=== PATIENT | female | born 1985 | race Caucasian/White ===

== ENCOUNTER → 2017-02-06 | Outpatient (CLI) | payer BC ==
[~2017-02-06] MED LIST: LAMO200T PO; LXP/10 PO
[2017-02-06 14:11] LABS: URINE APPEARANCE CLEAR (CLEAR); URINE BILIRUBIN NEG (NEG); URINE COLOR YELLOW; URINE EPITHELIAL CELL AUTO >30 /lpf (0-5); URINE NITRITE NEG (NEG); URINE PH 6.5 (4.5-7.5); URINE SPECIFIC GRAVITY 1.018 (1.000-1.030); UROBILINOGEN NEG (NEG); ZZUR CULT IF INDIC CLEAN CATCH YES
[2017-02-06 14:15] LABS: MANUAL MICROSCOPIC REQUIRED? NO; REVIEW REQ? YES
[2017-02-06 15:04] LABS: CALCIUM 9.2 mg/dl (8.5-10.1)
[2017-02-06 15:12] LABS: ALB/GLOB RATIO 1.5 (0.9-2); ALT/SGPT 48 U/L (12-78); BLOOD UREA NITROGEN 12 mg/dl (7-18); BUN/CREATININE RATIO 15.1 (10-20); CARBON DIOXIDE 27 mmol/L (21-32); CHLORIDE 106 mmol/L (98-107); CHOLESTEROL 185 mg/dl (0-200); CREATININE 0.82 mg/dl (0.60-1.20); GLUCOSE 81 mg/dl (70-99); POTASSIUM 4.1 mmol/L (3.5-5.1); SODIUM 142 mmol/L (136-145)
[2017-02-06 15:21] LABS: ALKALINE PHOSPHATASE 38 U/L (45-117); AST/SGOT 25 U/L (15-37); CHOLESTEROL/HDL RATIO 2.6; HDL CHOLESTEROL 71 mg/dl; LDL CHOLESTEROL CALCULATED 104 mg/dl; TRIGLYCERIDES 51 mg/dl (0-150); VERY LOW DENSITY LIPOPROT CALC 10 mg/dl
== END | disposition home or self-care (01) ==
LOC: C.LABBC 11:01
DX: Z51.81 Encounter for therapeutic drug level monitoring (principal); Z79.899 Other long term (current) drug therapy

== ENCOUNTER → 2017-06-24 | Outpatient (CLI) | payer BC | END | disposition home or self-care (01) | LOC: C.LABBC 10:54 | PROVIDERS: ATTEND Nurse Practitioner Adult Health | DX: R39.9 Unspecified symptoms and signs involving the genitourinary system (principal) ==

== ENCOUNTER → 2017-08-08 | Day surgery (SDC) | payer BC ==
[2017-07-26 14:47] VITALS: BMI 16.0
--- NOTE | 2017-07-26 15:15 | PAT Medication Instructions ---
Service Date Jul 26, 2017. Current Home Medication List Ibuprofen (Advil), 200 MG PO Q4 PRN for Pain Lamotrigine (Lamictal), 200 MG PO QAM Lorazepam (Ativan), 0.25-0.5 MG PO BID PRN for Anxiety and/or Sedation Quetiapine Fumarate (Seroquel), 25 MG PO HS Medication Instructions For Your Scheduled Surgery - Check with surgeon for instructions: Ibuprofen (Advil), 200 MG PO Q4 PRN for Pain - Take the following medications the morning of surgery with a sip of water: Lamotrigine (Lamictal), 200 MG PO QAM Lorazepam (Ativan), 0.25-0.5 MG PO BID PRN for Anxiety and/or Sedation (if needed) - Take the following medications as scheduled the night before surgery: Quetiapine Fumarate (Seroquel), 25 MG PO HS Lorazepam (Ativan), 0.25-0.5 MG PO BID PRN for Anxiety and/or Sedation (if needed) If you have any questions please call us at [phone] or [phone] or [phone]
[2017-07-26 15:39] LABS: BASO % 0.5 %; BASO ABS # 0.02 K/uL (0-0.2); HEMATOCRIT 41.7 % (37-47); HEMOGLOBIN 13.9 g/dL (12.0-16.0); LYMPH % 35.3 %; LYMPH ABS # 1.42 K/uL (1.2-3.4); MEAN CELL VOLUME 98.6 fL (80-100); MEAN CORPUSCULAR HEMOGLOBIN 32.9 pg (25-34); MEAN CORPUSCULAR HGB CONC 33.3 g/dl (32-36); MEAN PLATELET VOLUME 10.1 fL (7.4-10.4); MONO % 6.5 %; MONO ABS # 0.26 K/uL (0.11-0.59); NEUT % 57.7 %; NEUT ABS # 2.32 K/uL (1.4-6.5); PLATELET COUNT 225 K/uL (130-400); RED CELL DISTRIBUTION WIDTH CV 12.2 % (11.5-14.5); RED CELL DISTRIBUTION WIDTH SD 43.7 fL (36.4-46.3); WHITE BLOOD COUNT 4.02 K/uL (4.8-10.8)
--- NOTE | 2017-07-26 15:53 | DIAGNOSTIC IMAGING REPORT ---
CHEST 2 VIEWS ROUTINE HISTORY: 31 years-old Female PAT preoperative exam. No acute chest complaints COMPARISON: CT abdomen and pelvis 02/07/2014 TECHNIQUE: PA and lateral views of the chest FINDINGS: Cardiomediastinal and hilar silhouettes are within normal limits. No pneumothorax, pleural effusion, focal airspace consolidation or overt pulmonary edema. The bones of the chest appear grossly intact. IMPRESSION: No acute process. The above report was generated using voice recognition software. It may contain grammatical, syntax or spelling errors. Electronically signed by: Daniel Fontana M.D. 07/26/2017 3:51 PM Dictated Date/Time: 07/26/2017 3:50 PM
[2017-07-26 16:35] LABS: CALCIUM 9.1 mg/dl (8.5-10.1); CREATININE 0.79 mg/dl (0.60-1.20); POTASSIUM 4.5 mmol/L (3.5-5.1)
[~2017-08-08] VITALS: Ht 160 cm; Wt 43.0 kg
[~2017-08-08] MED LIST changes: +ACETAMINOPHEN 325 MG TAB PO PRN; +ATROPINE SULFATE 0.1 MG/ML 5ML SYR IV PRN; +CIPROFLOXACIN / D5W 400 MG IV SCH; +DEXAMETHASONE SOD INJ 4 MG/ML VIAL ONE; +EpHEDrine SULFATE INJ 50 MG/ML AMP IV PRN; +FENTANYL CITRATE INJ 50 MCG/1 ML 2 ML VIAL IV PRN; +FENTANYL CITRATE INJ 50 MCG/1 ML 2 ML VIAL ONE; +HYDROmorphone INJ 1 MG/ML SYR IV PRN; +IBUP-1050 PO; +KETOROLAC TROMETHAMINE 30 MG/ML VIAL ONE; +LABETALOL HCL IV 5 MG/ML 20ML IV PRN; +LACTATED RINGER'S 1000ML 1,000 ML IV SCH; +LIDOCAINE HCL 2% 2 ML VIAL (20MG/ML) ONE; +LORA-741 PO; -LXP/10 PO; +MEPERIDINE HCL 25 MG/ML CARP IV PRN; +MIDAZOLAM HCL 1 MG/ML 2ML VIAL ONE; +ONDANSETRON INJ 2 MG/ML 2 ML VIAL IV PRN; +ONDANSETRON INJ 2 MG/ML 2 ML VIAL ONE; +PHEN-775 PO; +PHENAZOPYRIDINE HCL 200 MG TAB PO STA; +PROPOFOL IV EMULSION 10 MG/ML 20 ML VIAL IV ONE; +QUET1TAB30 PO; +SODIUM CHLORIDE 0.9% 1000ML 1,000 ML IV SCH
[2017-08-08 07:18] VITALS: BP 113/59; PULSE 77; TEMP 36.4; O2SAT 100; Ht 160 cm; Wt 43.0 kg
--- NOTE | 2017-08-08 08:26 | History & Physical Bridge Note ---
H&P Re-Evaluation Bridge Note: I have examined the patient, reviewed the History & Physical and in the interval since the performance of the History & Physical I have noted the following changes of clinical significance: No changes noted
--- NOTE | 2017-08-08 09:13 | Discharge Instructions ---
Discharge Instructions Date of Service Aug 08, 2017. Admission Reason for Admission: Urinary Urgency/Frequency Discharge Discharge Diagnosis / Problem: urgency, frequency Discharge Goals Goal(s): Decrease discomfort, Improve function, Increase independence, Improve disease control Activity Recommendations Activity Limitations: resume your previous activity Lifting Limitations: none Exercise/Sports Limitations: none May Resume Sexual Activity: when tolerated Shower/Bathe: no limitations Driving or Machine Use: resume 1 day after discharge . Instructions / Follow-Up Instructions / Follow-Up Please keep your previously scheduled follow up appointment with Dr. Rubio. Current Hospital Diet Patient's current hospital diet: Discharge Diet Recommended Diet: Regular Diet Procedures Procedures Performed: Cystoscopy, Urethral Dilation, Hydrodistention Pending Studies Studies pending at discharge: no Medical Emergencies . Who to Call and When: Medical Emergencies: If at any time you feel your situation is an emergency, please call 911 immediately. . Non-Emergent Contact Non-Emergency issues call your: Urologist Call Non-Emergent contact if: you have a fever, temperature is above 101.5, your pain is not controlled, your pain is worsening . . "Provider Documentation" section prepared by Diego Martin. . VTE Core Measure Inpt VTE Proph given/why not?: Treatment not indicated
--- NOTE | 2017-08-08 09:17 | [facility] Operative Report ---
Operative Report Operative Date Aug 08, 2017. Pre-Operative Diagnosis Bladder dysfunction, hematuria Post-Operative Diagnosis same as pre-operative Procedure(s) Performed Cystoscopy, Urethral Dilation, Hydrodistention Surgeon Dr. Ankush Rubio Kiln Operator Helper Surgeon(s) none Estimated Blood Loss none Findings Moderately tight urethra without definitive stricture; healthy-appearing bladder - adequate capacity without mucosal abnormality Specimens none per surgeon Drains none Anesthesia Gen. Complication(s) None Disposition Recovery Room / PACU (stable) Indications Severe nocturia and urinary frequency; unresponsive to medications; hematuria Description of Procedure The patient was identified in the preoperative holding area, appropriate consents were reviewed and completed and she was transported to the operating suite. Upon arrival she received ciprofloxacin and general anesthesia. She was placed in dorsal lithotomy position and sterilely prepped and draped in standard fashion. I begin the case by gently inserting a 17 Qatari cystoscope with 30 lens. The urethra accommodated a 17 Q[place]ari scope was moderately tight. Full inspection of the bladder was conducted utilizing a 30 and 70 lens. There were no ulcerations or tumors. Ureteral orifices were in orthotopic position. Capacity appeared to be adequate. Full inspection of the urethra was conducted without evidence of abnormality or diverticuli. I then proceeded to perform end urethral dilation to 26 Qatari. Subsequent passage of a 22 Qatari scope was much easier than the 17 Qatari scope and then. I then distended the bladder maximally and left distended for 5 minutes. After draining the bladder and inspecting again, there still were no abnormalities or significant glomerulations. The case was subsequently concluded and she was extubated and taken to the PACU in stable condition. I attest to the content of the Intraoperative Record and any orders documented therein. Any exceptions are noted below.
--- NOTE | 2017-08-08 09:55 | Anesthesiology Progress Note ---
Anesthesia Post Op Note Date & Time Aug 08, 2017 at 09:55 Vital Signs Pain Intensity: 0 Vital Signs Past 12 Hours Date Time Temp Pulse Resp B/P (MAP) Pulse Ox O2 Delivery O2 Flow Rate FiO2 08/08/17 09:45 50 16 109/72 100 Room Air 08/08/17 09:35 67 16 104/76 100 Oxymask 5 08/08/17 09:25 70 16 118/83 100 Oxymask 10 08/08/17 09:19 36.2 68 14 118/81 100 Oxymask 10 08/08/17 07:18 36.4 77 16 113/59 (77) 100 Room Air Notes Mental Status: alert / awake / arousable, participated in evaluation Pt Amnestic to Procedure: Yes Nausea / Vomiting: adequately controlled Pain: adequately controlled Airway Patency, RR, SpO2: stable & adequate BP & HR: stable & adequate Hydration State: stable & adequate Anesthetic Complications: no major complications apparent
[2017-08-08 10:20] VITALS: BP 107/70; PULSE 48; TEMP 36.3; O2SAT 100
[2017-08-08 10:50] VITALS: BP 103/67; PULSE 62; TEMP 36.5; O2SAT 100
== END | disposition home or self-care (01) ==
LOC: C.ACU 06:53
PROVIDERS: ATTEND Urology
DX: N31.9 Neuromuscular dysfunction of bladder, unspecified (principal); R39.15 Urgency of urination; R35.0 Frequency of micturition; R31.9 Hematuria, unspecified; F32.9 Major depressive disorder, single episode, unspecified; R33.9 Retention of urine, unspecified; F42.9 Obsessive-compulsive disorder, unspecified; Z90.49 Acquired absence of other specified parts of digestive tract; Z82.49 Family history of ischemic heart disease and other diseases of the circulatory system; Z80.3 Family history of malignant neoplasm of breast; Z83.3 Family history of diabetes mellitus; Z80.1 Family history of malignant neoplasm of trachea, bronchus and lung

== ENCOUNTER 2022-03-25 16:41 | Inpatient (IN) ==
--- NOTE | 2022-03-25 17:19 | Emergency Department Note ---
Impression & Plan Depression with suicidal ideation ED Provider Note Name: YEISON MATTHEW Age: 36 Sex: F Arrives Via: Walk-In Informant: Patient, ED Provider: Sandeep Arciniega MD Chief Complaint: Mental health evaluation Impression: As per impressions above Medical Decision Makin-year-old female with a history of anxiety depression and previous hospitalization for suicide attempt arrives for evaluation of worsening depression, OCD, anxiety and increasing thoughts of suicide. She now has thought of jumping off a building and already chosen which building to do so from. She is medically cleared. I feel she does require inpatient stay and patient is agreeable to this. [facility] consulted and they will hospitalize on the floor. Prior Medical Record and Triage/Nursing Notes reviewed by Me Additional history obtained from chart Differentials:Mood disorder, infection, hypoglycemia, electrolyte abnormalities, cardiac sources, intracerebral event, toxicologic, trauma, neurologic, as well as other pathologies. Vital Signs: reviewed and remarkable for no significant abnormalities Labs:Reviewed and remarkable for no significant abnormalities Consults:[facility] accepts to their facility Plan: Disposition:Hospitalization. Condition: Good History of Present Illness:36-year-old female arrives for evaluation of suicidal ideation. Patient with a long history of depression anxiety and OCD and a previous hospitalization 6 to 8 years ago for suicide attempt. Patient notes the last 6 months have been very difficult for her. She states worsening anxiety and thoughts of the house being unclean. She feels she can see bugs all over her house. She and her have been living in this house for the last 12 years and he and she denies any recent changes. She does note that she has been so stressed she is now thinking of killing herself. She has thoughts of going to a local garage and jumping off the top floor. She denies any actual attempt at hurting herself recently. Denies any injuries from others. Has not been taking any other illegal drugs or smoking or drinking. Denies any medical issues other than she had a fever 2 weeks ago. At that time she was worked up by her PCP and told a viral illness but was COVID-negative as well. Nothing seems to make her symptoms better or worse other than she does feel better now that she is out of the house. Denies any current chest pain, shortness of breath, nausea, vomiting, abdominal pain, back pain, urinary symptoms, leg swelling, rashes or any other signs or symptoms. Patient does have a history of anorexia. She states her calorie restriction has been stable she has not had any weight loss and feels that is relatively under good control at the moment. ROS: See above HPI for pertinent positives & negatives. A total of 10 systems reviewed and were otherwise negative. Past Medical History:Anxiety/depression, endometriosis, anorexia Past Surgical History:Bilateral foot surgery, tonsils and adenoids, endometrial ablation, appendectomy Family History:Notes a significant family history of anxiety though no previous suicide attempts and family Social History:, has lived in [place] for the last 15 years, no drugs, no alcohol use, no tobacco use Home Medications:Paxil, Ativan, loxapine Allergies:Shellfish, eggs, anthramycin, milk, clavulanic acid, penicillin, sulfisoxazole, oxycodone Vitals:Blood Pressure: 126/86, Pulse 88, RR 8, T 36.7C, O2 99% on RA Physical Exam: GENERAL: Patient is sad appearing and in minimal distress. EYES: No scleral icterus, unremarkable pupils. RESPIRATORY: No dyspnea. Clear to auscultation and equal bilaterally. No wheeze, no rhonchi. CARDIOVASCULAR: Regular rate and rhythm.No murmurs, rubs, gallops appreciated. GASTROINTESTINAL: Abdomen soft, non-tender, no peritonitis.Bowel sounds positive.No masses appreciated. BACK: No midline tenderness, no CVA tenderness EXTREMITIES: Normal motion all extremities, no cyanosis, no edema. NEUROLOGIC: Alert and oriented, no acute motor or sensory deficits, no focal weakness, cranial nerves grossly intact. SKIN: No rash, no jaundice, no diaphoresis. PSYCH: Sad, depressed, admits suicidal/homicidal ideation GCS: 15 ED Course: Times/Reassessments: Patient stable throughout and excepted to [facility] for further management. Sandeep Arciniega MD Past Med/Surg History Social History Smoking Status: Never smoker Preferred Language: Syriac Communication Ability: Effective Auto Tester Required: No Beliefs That Will Affect Care: None Feels Safe at Home: Yes Assistive Devices Comment: Mouth guard Allergies Allergies Allergy/AdvReac Type Severity Reaction Status Date / Time shellfish derived Allergy Severe ANAPHYLAXIS Verified 08/08/17 07:15 Egg Derived Allergy Intermediate RASH Verified 08/08/17 07:15 erythromycin base Allergy Intermediate RASH, Verified 08/08/17 07:15 HIVES AND SWELLING milk Allergy Mild RASH Verified 08/08/17 07:15 clavulanic acid Allergy Unknown RASH, Verified 08/08/17 07:15 HIVES AND SWELLING Penicillins Allergy Unknown HIVES, Verified 08/08/17 07:15 RASH AND SWELLING sulfisoxazole Allergy Unknown RASH, Verified 07/26/17 14:38 HIVES AND SWELLING oxycodone AdvReac Mild MIGRAINE Verified 07/26/17 14:45 Home Meds Home Medications Medication Instructions Recorded Confirmed LORAZEPAM (ATIVAN) 0.25 - 0.5 mg PO BID PRN Anxiety 07/26/17 03/25/22 and/or Sedation #0 tabs loxapine succinate 5 mg capsule 5 mg PO HS 03/25/22 03/25/22 paroxetine HCl 10 mg tablet 10 mg PO DAILY 03/25/22 03/25/22 Results & Data (ED) Vital Signs Vital Signs - 24 hr 03/25/22 16:53 Temperature 36.7 C Temperature Source Temporal Artery Scan Pulse Rate 88 Respiratory Rate 18 Blood Pressure 126/86 Blood Pressure Mean 99 Oxygen Delivery Method Room Air Sepsis Recent Fever Within 48 Hours No Sepsis New/Unexplained Change in Mental Status No Sepsis Action Taken by Nursing No Action Required Laboratory Data Result diagrams: 03/25/22 17:25 03/25/22 17:25 Lab Results 03/25/22 03/25/22 03/25/22 Range/Units 17:03 17:03 17:03 WBC (4.8-10.8) K/ul RBC (3.93-5.22) M/uL Hgb (12.0-16.0) g/dl Hct (34.1-44.9) % MCV (80.0-100.0) fL MCH (25.0-34.0) pg MCHC (32.0-36.0) g/dL RDW Std Deviation (36.4-46.3) fL RDW Coeff of Samy (11.5-14.5) % Plt Count (130-400) K/uL MPV (9.4-12.3) fL Immature Gran % (Auto) % Neut % (Auto) % Lymph % (Auto) % [place] % (Auto) % Eos % (Auto) % Baso % (Auto) % Neut # (Auto) (1.4-6.5) K/uL Lymph # (Auto) (1.2-3.4) K/uL [place] # (Auto) (0.24-0.82) K/uL Eos # (Auto) (0-0.50) K/uL Baso # (Auto) (0-0.2) K/uL Immature Gran # (Auto) (0.00-0.02) K/uL Sodium (136-145) mmol/L Potassium (3.5-5.1) mmol/L Chloride (98-107) mmol/L Carbon Dioxide (21-32) mmol/L Anion Gap (3-11) BUN (6-23) mg/dl Creatinine (0.6-1.2) mg/dl Est Cr Clr Drug Dosing ml/min Est GFR ( Amer) ml/min Est GFR (Non-Af Amer) ml/min BUN/Creatinine Ratio (10-20) Glucose (70-99(Fasting)) mg/dl Calcium (8.5-10.1) mg/dl Total Bilirubin (0.2-1.0) mg/dl AST (13-39) U/L ALT (7-52) U/L Alkaline Phosphatase (34-104) U/L Total Protein (6.0-8.3) gm/dl Albumin (3.4-5.0) gm/dl Globulin (2.5-4.0) gm/dl Albumin/Globulin Ratio (0.9-2) TSH (0.300-4.500) uIu/ml Urine Color Yellow Urine Appearance Clear (Clear) Urine pH 7.0 (4.5-7.5) Ur Specific Olar 1.019 (1.000-1.030) Urine Protein Negative (Negative) Urine Glucose (UA) Negative (Negative) Urine Ketones Negative (Negative) Urine Blood Trace H (Negative) Urine Nitrite Negative (Negative) Urine Bilirubin Negative (Negative) Urine Urobilinogen Negative (Negative) Ur Leukocyte Esterase Negative (Negative) Urine WBC (Auto) 1-5 (0-5) /hpf Urine RBC (Auto) 5-10 H (0-4) /hpf U Hyaline Cast (Auto) 0 (0-5) /lpf U Epithel Cells (Auto) 10-20 H (0-5) /lpf Urine Bacteria (Auto) Negative (Negative) Urine Test Negative (Negative) Salicylates (3.0-30) mg/dl Urine Opiates Screen (Neg) Ur Methadone, Qual (Neg) Acetaminophen (10-30) ug/ml Urine Barbiturates (Neg) Ur Phencyclidine (PCP) (Neg) U Amphetamin/Meth Scrn (Neg) MDMA (Ecstasy) Screen (Neg) U Benzodiazepines Scrn (Neg) Ur Cocaine Metabolite (Neg) U Marijuana (THC) Screen (Neg) Ethyl Alcohol mg/dL (<10.0) mg/dl SARS-CoV-2, RNA, NAAT NEGATIVE (NEGATIVE) 03/25/22 03/25/22 03/25/22 Range/Units 17:03 17:25 17:25 WBC 7.64 (4.8-10.8) K/ul RBC 4.15 (3.93-5.22) M/uL Hgb 13.7 (12.0-16.0) g/dl Hct 41.1 (34.1-44.9) % MCV 99.0 (80.0-100.0) fL MCH 33.0 (25.0-34.0) pg MCHC 33.3 (32.0-36.0) g/dL RDW Std Deviation 44.2 (36.4-46.3) fL RDW Coeff of Samy 12.1 (11.5-14.5) % Plt Count 212 (130-400) K/uL MPV 10.1 (9.4-12.3) fL Immature Gran % (Auto) 0.1 % Neut % (Auto) 77.9 % Lymph % (Auto) 15.7 % [place] % (Auto) 5.9 % Eos % (Auto) 0.1 % Baso % (Auto) 0.3 % Neut # (Auto) 5.95 (1.4-6.5) K/uL Lymph # (Auto) 1.20 (1.2-3.4) K/uL [place] # (Auto) 0.45 (0.24-0.82) K/uL Eos # (Auto) 0.01 (0-0.50) K/uL Baso # (Auto) 0.02 (0-0.2) K/uL Immature Gran # (Auto) 0.01 (0.00-0.02) K/uL Sodium 139 (136-145) mmol/L Potassium 3.9 (3.5-5.1) mmol/L Chloride 103 (98-107) mmol/L Carbon Dioxide 30 (21-32) mmol/L Anion Gap 6 (3-11) BUN 15 (6-23) mg/dl Creatinine 0.69 (0.6-1.2) mg/dl Est Cr Clr Drug Dosing 76.4 ml/min Est GFR ( Amer) 130.7 ml/min Est GFR (Non-Af Amer) 112.8 ml/min BUN/Creatinine Ratio 21.7 H (10-20) Glucose 106 H (70-99(Fasting)) mg/dl Calcium 9.8 (8.5-10.1) mg/dl Total Bilirubin 0.4 (0.2-1.0) mg/dl AST 21 (13-39) U/L ALT 22 (7-52) U/L Alkaline Phosphatase 39 (34-104) U/L Total Protein 7.3 (6.0-8.3) gm/dl Albumin 4.9 (3.4-5.0) gm/dl Globulin 2.4 L (2.5-4.0) gm/dl Albumin/Globulin Ratio 2.0 (0.9-2) TSH (0.300-4.500) uIu/ml Urine Color Urine Appearance (Clear) Urine pH (4.5-7.5) Ur Specific O[place] (1.000-1.030) Urine Protein (Negative) Urine Glucose (UA) (Negative) Urine Ketones (Negative) Urine Blood (Negative) Urine Nitrite (Negative) Urine Bilirubin (Negative) Urine Urobilinogen (Negative) Ur Leukocyte Esterase (Negative) Urine WBC (Auto) (0-5) /hpf Urine RBC (Auto) (0-4) /hpf U Hyaline Cast (Auto) (0-5) /lpf U Epithel Cells (Auto) (0-5) /lpf Urine Bacteria (Auto) (Negative) Urine Test (Negative) Salicylates (3.0-30) mg/dl Urine Opiates Screen Neg (Neg) Ur Methadone, Qual Neg (Neg) Acetaminophen (10-30) ug/ml Urine Barbiturates Neg (Neg) Ur Phencyclidine (PCP) Neg (Neg) U Amphetamin/Meth Scrn Neg (Neg) MDMA (Ecstasy) Screen Neg (Neg) U Benzodiazepines Scrn Neg (Neg) Ur Cocaine Metabolite Neg (Neg) U Marijuana (THC) Screen Neg (Neg) Ethyl Alcohol mg/dL (<10.0) mg/dl SARS-CoV-2, RNA, NAAT (NEGATIVE) 03/25/22 03/25/22 03/25/22 Range/Units 17:25 17:25 17:25 WBC (4.8-10.8) K/ul RBC (3.93-5.22) M/uL Hgb (12.0-16.0) g/dl Hct (34.1-44.9) % MCV (80.0-100.0) fL MCH (25.0-34.0) pg MCHC (32.0-36.0) g/dL RDW Std Deviation (36.4-46.3) fL RDW Coeff of Samy (11.5-14.5) % Plt Count (130-400) K/uL MPV (9.4-12.3) fL Immature Gran % (Auto) % Neut % (Auto) % Lymph % (Auto) % [place] % (Auto) % Eos % (Auto) % Baso % (Auto) % Neut # (Auto) (1.4-6.5) K/uL Lymph # (Auto) (1.2-3.4) K/uL [place] # (Auto) (0.24-0.82) K/uL Eos # (Auto) (0-0.50) K/uL Baso # (Auto) (0-0.2) K/uL Immature Gran # (Auto) (0.00-0.02) K/uL Sodium (136-145) mmol/L Potassium (3.5-5.1) mmol/L Chloride (98-107) mmol/L Carbon Dioxide (21-32) mmol/L Anion Gap (3-11) BUN (6-23) mg/dl Creatinine (0.6-1.2) mg/dl Est Cr Clr Drug Dosing ml/min Est GFR ( Amer) ml/min Est GFR (Non-Af Amer) ml/min BUN/Creatinine Ratio (10-20) Glucose (70-99(Fasting)) mg/dl Calcium (8.5-10.1) mg/dl Total Bilirubin (0.2-1.0) mg/dl AST (13-39) U/L ALT (7-52) U/L Alkaline Phosphatase (34-104) U/L Total Protein (6.0-8.3) gm/dl Albumin (3.4-5.0) gm/dl Globulin (2.5-4.0) gm/dl Albumin/Globulin Ratio (0.9-2) TSH 0.931 (0.300-4.500) uIu/ml Urine Color Urine Appearance (Clear) Urine pH (4.5-7.5) Ur Specific [place] (1.000-1.030) Urine Protein (Negative) Urine Glucose (UA) (Negative) Urine Ketones (Negative) Urine Blood (Negative) Urine Nitrite (Negative) Urine Bilirubin (Negative) Urine Urobilinogen (Negative) Ur Leukocyte Esterase (Negative) Urine WBC (Auto) (0-5) /hpf Urine RBC (Auto) (0-4) /hpf U Hyaline Cast (Auto) (0-5) /lpf U Epithel Cells (Auto) (0-5) /lpf Urine Bacteria (Auto) (Negative) Urine Test (Negative) Salicylates < 3.0 L (3.0-30) mg/dl Urine Opiates Screen (Neg) Ur Methadone, Qual (Neg) Acetaminophen < 3 L (10-30) ug/ml Urine Barbiturates (Neg) Ur Phencyclidine (PCP) (Neg) U Amphetamin/Meth Scrn (Neg) MDMA (Ecstasy) Screen (Neg) U Benzodiazepines Scrn (Neg) Ur Cocaine Metabolite (Neg) U Marijuana (THC) Screen (Neg) Ethyl Alcohol mg/dL < 10.0 (<10.0) mg/dl SARS-CoV-2, RNA, NAAT (NEGATIVE) Administered Medications Loxapine Succinate (Loxapine Succinate) 1 each PO HS TERESSA Stop: 04/24/22 21:59 Last Admin: 03/25/22 22:22 Dose: 1 each Documented By: RAMAN Discontinued Medications Lorazepam (Lorazepam 1 Mg Tab) 0.5 mg SL NOW STA Stop: 03/25/22 17:52 Last Admin: 03/25/22 18:04 Dose: 0.5 mg Documented By: Discharge Plan Visit Data Chief Complaint: Mental Health Evaluation Stated Complaint: MENTAL HEALTH EVAL ED Provider: Sandeep Arciniega Discharge Problem: Depression with suicidal ideation Patient Disposition: Admitted As Inpatient Discharge Instructions Interventions: ED Discharge Assessment Last Done: 03/25/22 19:44
[2022-03-25 17:41] LABS: Basophils # (auto) 0.02 K/uL (0-0.2); Basophils % (auto) 0.3 %; Eosinophils # (auto) 0.01 K/uL (0-0.50); Eosinophils % (auto) 0.1 %; Hematocrit (blood only) 41.1 % (34.1-44.9); Hemoglobin 13.7 g/dl (12.0-16.0); Immature Granulocytes # (auto) 0.01 K/uL (0.00-0.02); Immature Granulocytes % (auto) 0.1 %; Lymphocytes % (auto) 15.7 %; Mean Corpuscular Hgb Conc 33.3 g/dL (32.0-36.0); Mean Platelet Volume 10.1 fL (9.4-12.3); Monocytes # (auto) 0.45 K/uL (0.24-0.82); Monocytes % (auto) 5.9 %; Neutrophils # (auto) 5.95 K/uL (1.4-6.5); Neutrophils % (auto) 77.9 %; Platelet Count 212 K/uL (130-400); RDW Coefficient of Variation 12.1 % (11.5-14.5); RDW Standard Deviation 44.2 fL (36.4-46.3); Red Blood Count 4.15 M/uL (3.93-5.22); White Blood Count 7.64 K/ul (4.8-10.8)
[2022-03-25 17:45] LABS: Pregnancy Test, Urine Negative (Negative)
[2022-03-25 17:47] LABS: Appearance Urine Clear (Clear); Bacteria Urine Automated Negative (Negative); Bilirubin Urine Negative (Negative); Blood Urine Trace (Negative); Cast Urine Automated 0 /lpf (0-5); Color Urine Yellow; Glucose Urine UA Negative (Negative); Ketones Urine Negative (Negative); Leukocyte Esterase Urine Negative (Negative); Nitrite Urine Negative (Negative); Protein Urine Negative (Negative); Specific Gravity Urine 1.019 (1.000-1.030); Urobilinogen Urine Negative (Negative)
[2022-03-25] MEDS ORDERED: LORazepam 1 MG TAB SL STA (17:51)
[2022-03-25 18:03] LABS: Acetaminophen < 3 ug/ml (10-30); Albumin Level 4.9 gm/dl (3.4-5.0); BUN Creatinine Ratio 21.7 (10-20); Bilirubin,Total 0.4 mg/dl (0.2-1.0); Calcium 9.8 mg/dl (8.5-10.1); Creatinine Clr Calc Pharmacy 76.4 ml/min; Est GFR (African American) 130.7 ml/min; Est GFR (Non-African American) 112.8 ml/min; Globulin 2.4 gm/dl (2.5-4.0); Potassium 3.9 mmol/L (3.5-5.1); Salicylate < 3.0 mg/dl (3.0-30); Total Protein 7.3 gm/dl (6.0-8.3)
[2022-03-25 18:10] LABS: Amphetamines+Metham, Urine Neg (Neg); Barbiturates, Urine Neg (Neg); Benzodiazepine, Urine Neg (Neg); Cocaine, Urine Neg (Neg); MDMA (Ecstacy), Urine Neg (Neg); Methadone, Urine Neg (Neg); Opiate, Urine Neg (Neg); Phencyclidine, Urine Neg (Neg)
[2022-03-25] MEDS ORDERED: BISMUTH SUBSALICYLATE LIQD 236 ML PO PRN (19:05)
[2022-03-25] MEDS ORDERED: SODIUM CHLORIDE 0.65% NA SOLN 45 ML (OCEAN) PRN (19:05)
[2022-03-25] MEDS ORDERED: hydrOXYzine HCl 25 MG TAB PO PRN (19:05)
[2022-03-25] MEDS ORDERED: ALUMINUM/MAGNESIUM SUSP 30 ML UDC PO PRN (19:05)
[2022-03-25] MEDS ORDERED: ACETAMINOPHEN 325 MG TAB PO PRN (19:05)
[2022-03-25] MEDS ORDERED: MAGNESIUM HYDROXIDE SUSP 30 ML UDC PO PRN (19:05)
[2022-03-25] MEDS ORDERED: LORazepam 0.5 MG TAB PO PRN (19:44)
[2022-03-25] MEDS: LOXAPINE SUCCINATE PO SCH (22:22)
[2022-03-26 08:40] LABS: Chol HDL Ratio 3.3 (0-5)
[2022-03-26] MEDS ORDERED: PARoxetine HCL 10 MG TAB PO SCH (09:00)
[2022-03-26] MEDS ORDERED: LORazepam 0.5 MG TAB PO PRN (11:00)
[2022-03-26] MEDS: POLYETHYLENE (MIRALAX) 17 GM PACK PO SCH (11:57)
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
[2022-03-26] MEDS: LOXAPINE SUCCINATE PO SCH (21:47)
[2022-03-26] MEDS: CLOMIPRAMINE 25 MG PO SCH (21:48)
[2022-03-27] MEDS: hydrOXYzine HCl 25 MG TAB PO PRN ×2 (01:15→03:11)
[2022-03-27] MEDS: POLYETHYLENE (MIRALAX) 17 GM PACK PO SCH (09:07)
--- NOTE | 2022-03-27 13:05 | Psychiatric Progress Note ---
Date of Service March 27, 2022 Impression / Recommendations Impression 36 yo female with complex psychiatric history including depression, anxiety, OCD, eating disorder, complex trauma presented for inpatient admission due to SI and inability to function at home. She is high risk for suicide attempt given countless past near gestures and OD in 2011. (1) Depression with suicidal ideation: (2) Obsessive compulsive disorder: (3) Anorexia nervosa with significantly low body weight: (4) Post traumatic stress disorder: Plan 03/27/22: Mehrdad overton short trial, coordinate care with outpatient psychiatrist on 03/28/22. Reeducated re: rationale for cross taper. 03/26/22: The patient was admitted to the [facility]) on q15 min checks (behavioral with suicide precautions) for safety. The patient will participate in group, recreational, and milieu therapies and will be offered additional individual and family sessions as clinically appropriate. Risks/benefits/alternatives reviewed re: current medications, agreed to taper Paxil in favor of a trial of TCA, clomipramine 25 mg qhs. Monitor PO intake. Inventory Assets Strengths: help seeking, intelligent Needs: additional coping skills, family meeting Suicide Risk Level Suicide Risk Level: High-Moderate (q15 min suicide checks) ([place] for safety on unit) Risk Factors Assessment Do You Have Access To A Gun?: No Mental Health Diagnoses: Yes Previous Attempt: Yes Previous Psychiatric Hospitalization: Yes Protective Factors Assessment : Yes Employed: No Supportive Family: Yes Good Rapport with Provider: Yes Interval History Identifying Information YEISON MATTHEW is a 36-year-old F who currently lives in [place], has a history of hospitalizations on in 2010, and was admitted on 03/25/22 19:07 on a 201 voluntary commitment for severe obsessions and SI. Chief Complaint "I was still having alot of obsessions about suicide last night, mainly how to manage when I get out". Review of Systems Sleep Information Total Hours of Sleep: 3 Sleep Comments: vistaril 50 mg @0115 with repeat dose @ 0300 Meal Information Percent Meal Consumed - Breakfast: 100 Percent Meal Consumed - Lunch: 100 Percent Meal Consumed - Dinner: 90 Subjective Subjective Patient was seen & assessed and interval progress reviewed with nursing and social work. States she has been eating surprisingly well here and not trying to count calories. She did not sleep well at all, even worse than home, up/down until 5:30 am despite Vistaril X2, reviewed that antihistamines don't typically work for her. Discussed based trials of the "zmeds". Physical Exam Psychiatric Orientation: alert and oriented x 3 Apperance: appropriately dressed and appropriately groomed Eye Contact: good eye contact Motor Behavior: no abnormal motor movements Speech: normal rate/rhythm/volume of speech Affect: + depressed affect Mood: + depressed mood and + anxious mood Thought Process: goal directed thought process Thought Content: reality based without delusions Suicidal Thoughts: denies suicidal plan (while in hospital) and denies suicidal intent; + reports suicidal thoughts Homicidal Thoughts: denies homicidal thoughts Hallucinations: no auditory hallucinations and no visual hallucinations Cognition: attention grossly intact and language grossly intact Estimated Intelligence: consistent with education level Insight: + limited insight Judgement: + limited judgement Vital Signs (Past 24 Hours) Last Vital Signs Temp 37.4 C 03/26/22 20:00 Pulse 93 H 03/27/22 09:18 Resp 18 03/27/22 09:18 BP 100/67 03/27/22 09:18 Pulse Ox 99 03/25/22 19:58 O2 Del Method 03/25/22 19:58 Results & Data ([facility]) Current Inpatient Medications Current Inpatient Medications: Current Inpatient Medications Acetaminophen (Acetaminophen 325 Mg Tab) 650 mg PO Q4H PRN PRN Reason: Headache or Minor Fever Stop: 04/24/22 19:04 Al Hydrox/Mg Hydrox/Simethicone (Aluminum/Magnesium Susp 30 Ml Udc) 30 ml PO Q4H PRN PRN Reason: GI Upset Stop: 04/24/22 19:04 Bismuth Subsalicylate (Bismuth Subsalicylate Liqd 236 Ml) 15 ml PO PRN PRN PRN Reason: Loose Stool Stop: 04/24/22 19:04 Hydroxyzine HCl (Hydroxyzine Hcl 25 Mg Tab) 25 mg PO Q4H PRN PRN Reason: Anxiety Stop: 04/24/22 19:04 Lorazepam (Lorazepam 0.5 Mg Tab) 0.25 mg PO BID PRN PRN Reason: Anxiety Stop: 04/24/22 19:43 Loxapine Succinate (Loxapine Succinate) 1 each PO HS TERESSA Stop: 04/24/22 21:59 Last Admin: 03/26/22 21:47 Dose: 1 each Magnesium Hydroxide (Magnesium Hydroxide Susp 30 Ml Udc) 30 ml PO DAILY PRN PRN Reason: Constipation Stop: 04/24/22 19:04 Clomipramine 25mg: Non-Formulary Patient's Own Med 1 each PO HS TERESSA Stop: 04/25/22 21:59 Last Admin: 03/26/22 21:48 Dose: 1 cap Paroxetine HCl (Paroxetine Hcl 10 Mg Tab) 10 mg PO HS TERESSA Stop: 04/26/22 21:59 Polyethylene Glycol (Polyethylene (Miralax) 17 Gm Pack) 17 gm PO DAILY TERESSA Stop: 04/25/22 10:59 Last Admin: 03/27/22 09:07 Dose: 17 gm Sodium Chloride (Sodium Chloride 0.65% Na Soln 45 Ml ([place])) 1 - 2 sprays NA PRN PRN PRN Reason: Nasal Dryness/Congestion Stop: 04/24/22 19:04 Zolpidem Tartrate (Zolpidem Tartrate 10 Mg Tab) 10 mg PO HS PRN PRN Reason: Sleep Stop: 04/26/22 09:35 Mental Health & Subst Abuse Tx Therapist Name of Therapist: Albert Elise, [facility] Post Discharge Appointments Primary Care Physician Name Of Family Doctor: Sudha Domínguez
[2022-03-27] MEDS: CLOMIPRAMINE 25 MG PO SCH (21:49)
[2022-03-27] MEDS: LOXAPINE SUCCINATE PO SCH (21:50)
[2022-03-27] MEDS: PARoxetine HCL 10 MG TAB PO SCH (21:50)
[2022-03-27] MEDS: ZOLPIDEM TARTRATE 10 MG TAB PO PRN (21:53)
[2022-03-28] MEDS: POLYETHYLENE (MIRALAX) 17 GM PACK PO SCH (08:57)
--- NOTE | 2022-03-28 13:11 | Psychiatric Progress Note ---
Date of Service March 28, 2022 Impression / Recommendations Impression 36 yo female with complex psychiatric history including depression, anxiety, OCD, eating disorder, complex trauma presented for inpatient admission due to SI and inability to function at home. She is high risk for suicide attempt given countless past near gestures and OD in 2011. 03/28/22: some improvement, sleep is less than ideal (1) Depression with suicidal ideation: (2) Obsessive compulsive disorder: (3) Anorexia nervosa with significantly low body weight: (4) Post traumatic stress disorder: Plan 03/28/22: last dose Paxil this pm, continue clomipramine 25 mg until Paxil d/c. Patient is requesting stool softener. dose clomipramine earlier in case it is interfering with sleep. Ambien for now. 03/27/22: Ambien prn short trial, coordinate care with outpatient psychiatrist on 03/28/22. Reeducated re: rationale for cross taper. 03/26/22: The patient was admitted to the [facility] ([facility] mental health unit) on q15 min checks (behavioral with suicide precautions) for safety. The patient will participate in group, recreational, and milieu therapies and will be offered additional individual and family sessions as clinically appropriate. Risks/benefits/alternatives reviewed re: current medications, agreed to taper Paxil in favor of a trial of TCA, clomipramine 25 mg qhs. Monitor PO intake. Inventory Assets Strengths: help seeking, intelligent Needs: additional coping skills, family meeting Suicide Risk Level Suicide Risk Level: Moderate (q15 min suicide checks) Risk Factors Assessment Do You Have Access To A Gun?: No Mental Health Diagnoses: Yes Previous Attempt: Yes Previous Psychiatric Hospitalization: Yes Protective Factors Assessment : Yes Employed: No Supportive Family: Yes Good Rapport with Provider: Yes Interval History Identifying Information YEISON MATTHEW is a 36-year-old F who currently lives in [place], has a h istory of hospitalizations on in 2010, and was admitted on 03/25/22 19:07 on a 201 voluntary commitment for severe obsessions and SI. Chief Complaint "I'm always with my , that will be a big change when he goes back to office." Review of Systems Sleep Information Total Hours of Sleep: 6.5 Sleep Comments: ambien 10 mg prn Meal Information Percent Meal Consumed - Breakfast: 50 Percent Meal Consumed - Lunch: 100 Percent Meal Consumed - Dinner: 80 Subjective Subjective Patient was seen & assessed and interval progress reviewed with treatment team. case discussed with Dr. Covarrubias as had planned 8 day cross taper to TCA (confirmed), Mehrdad has not been very effective in the past and had some sleep behaviors but is getting here in supervised setting. Patient does not like to rely on Ativan either. attending groups. less obsessive here but has many distractors and 1-on-1. Physical Exam Psychiatric Orientation: alert and oriented x 3 Apperance: appropriately dressed and appropriately groomed Eye Contact: good eye contact Motor Behavior: no abnormal motor movements Speech: normal rate/rhythm/volume of speech Affect: + depressed affect Mood: + depressed mood and + anxious mood Thought Process: goal directed thought process Thought Content: reality based without delusions Suicidal Thoughts: denies suicidal thoughts, denies suicidal plan (while in hospital) and denies suicidal intent Homicidal Thoughts: denies homicidal thoughts Hallucinations: no auditory hallucinations and no visual hallucinations Cognition: attention grossly intact and language grossly intact Estimated Intelligence: consistent with education level Insight: + limited insight Judgement: + limited judgement Vital Signs (Past 24 Hours) Last Vital Signs Temp 36.9 C 03/28/22 06:40 Pulse 99 H 03/28/22 06:40 Resp 16 03/28/22 06:40 BP 96/63 L 03/28/22 06:40 Pulse Ox 99 03/25/22 19:58 O2 Del Method 03/25/22 19:58 Results & Data ([facility]) Current Inpatient Medications Current Inpatient Medications: Current Inpatient Medications Acetaminophen (Acetaminophen 325 Mg Tab) 650 mg PO Q4H PRN PRN Reason: Headache or Minor Fever Stop: 04/24/22 19:04 Al Hydrox/Mg Hydrox/Simethicone (Aluminum/Magnesium Susp 30 Ml Udc) 30 ml PO Q4H PRN PRN Reason: GI Upset Stop: 04/24/22 19:04 Bismuth Subsalicylate (Bismuth Subsalicylate Liqd 236 Ml) 15 ml PO PRN PRN PRN Reason: Loose Stool Stop: 04/24/22 19:04 Hydroxyzine HCl (Hydroxyzine Hcl 25 Mg Tab) 25 mg PO Q4H PRN PRN Reason: Anxiety Stop: 04/24/22 19:04 Lorazepam (Lorazepam 0.5 Mg Tab) 0.25 mg PO BID PRN PRN Reason: Anxiety Stop: 04/24/22 19:43 Loxapine Succinate (Loxapine Succinate) 1 each PO HS TERESSA Stop: 04/24/22 21:59 Last Admin: 03/27/22 21:50 Dose: 1 each Magnesium Hydroxide (Magnesium Hydroxide Susp 30 Ml Udc) 30 ml PO DAILY PRN PRN Reason: Constipation Stop: 04/24/22 19:04 Clomipramine 25mg: Non-Formulary Patient's Own Med 1 each PO HS TERESSA Stop: 04/25/22 21:59 Last Admin: 03/27/22 21:49 Dose: 1 cap Paroxetine HCl (Paroxetine Hcl 10 Mg Tab) 10 mg PO HS TERESSA Stop: 04/26/22 21:59 Last Admin: 03/27/22 21:50 Dose: 10 mg Polyethylene Glycol (Polyethylene (Miralax) 17 Gm Pack) 17 gm PO DAILY TERESSA Stop: 04/25/22 10:59 Last Admin: 03/28/22 08:57 Dose: 17 gm Sodium Chloride (Sodium Chloride 0.65% Na Soln 45 Ml ([place])) 1 - 2 sprays NA PRN PRN PRN Reason: Nasal Dryness/Congestion Stop: 04/24/22 19:04 Zolpidem Tartrate (Zolpidem Tartrate 10 Mg Tab) 10 mg PO HS PRN PRN Reason: Sleep Stop: 04/26/22 09:35 Last Admin: 03/27/22 21:53 Dose: 10 mg Mental Health & Subst Abuse Tx Psychiatrist Name of Psychiatrist: [facility] - Dr. Covarrubias Psychiatrist's Date of Appointment with Psychiatrist: 04/11/22 Time of Appointment with Psychiatrist: 12:40pm Psychiatric Appointment Comment: Via Zoom Therapist Name of Therapist: [facility] - Albert Elise, PhD, [employer] Therapist's Date of Therapist Appointment: 03/31/22 Time of Therapist Appointment: 2pm Therapy Appointment Comment: Via Zoom Instructor Technical Training Name of Instructor Technical Training: [employer] Phone Number for Instructor Technical Training: [phone] Post Discharge Appointments Primary Care Physician Name Of Family Doctor: Sudha Domínguez Primary Care Contact Information Discharge Discharge Address: [address] [place] [address]
[2022-03-28] MEDS ORDERED: NON-FORMULARY PATIENT'S OWN MED PO SCH (17:15)
[2022-03-28] MEDS ORDERED: CLOMIPRAMINE 25 MG PO SCH (17:15)
[2022-03-28] MEDS: PARoxetine HCL 10 MG TAB PO SCH (21:51)
[2022-03-28] MEDS: DOCUSATE SODIUM 100 MG CAP PO SCH (21:52)
[2022-03-28] MEDS: LOXAPINE SUCCINATE PO SCH (21:52)
[2022-03-28] MEDS: ZOLPIDEM TARTRATE 10 MG TAB PO PRN (22:01)
[2022-03-29] MEDS: DOCUSATE SODIUM 100 MG CAP PO SCH ×2 (08:37→21:52)
[2022-03-29] MEDS: POLYETHYLENE (MIRALAX) 17 GM PACK PO SCH (08:39)
--- NOTE | 2022-03-29 13:27 | Psychiatric Progress Note ---
Date of Service March 29, 2022 Impression / Recommendations Impression 36 yo female with complex psychiatric history including depression, anxiety, OCD, eating disorder, complex trauma presented for inpatient admission due to SI and inability to function at home. She is high risk for suicide attempt given countless past near gestures and OD in 2011. 03/29/22: improving overall though anticipatory anxiety increased (1) Depression with suicidal ideation: (2) Obsessive compulsive disorder: (3) Anorexia nervosa with significantly low body weight: (4) Post traumatic stress disorder: Plan 03/29/22: d/c Paxil. Increase clomipramine to 50 mg. increase Miralax for complaints of constipation. 03/28/22: last dose Paxil this pm, continue clomipramine 25 mg until Paxil d/c. Patient is requesting stool softener. dose clomipramine earlier in case it is interfering with sleep. Ambien for now. 03/27/22: Ambien prn short trial, coordinate care with outpatient psychiatrist on 03/28/22. Reeducated re: rationale for cross taper. 03/26/22: The patient was admitted to the [facility] ([facility] unit) on q15 min checks (behavioral with suicide precautions) for safety. The patient will participate in group, recreational, and milieu therapies and will be offered additional individual and family sessions as clinically appropriate. Risks/benefits/alternatives reviewed re: current medications, agreed to taper Paxil in favor of a trial of TCA, clomipramine 25 mg qhs. Monitor PO intake. Inventory Assets Strengths: help seeking, intelligent Needs: additional coping skills, family meeting Suicide Risk Level Suicide Risk Level: Moderate (q15 min suicide checks) Risk Factors Assessment Do You Have Access To A Gun?: No Mental Health Diagnoses: Yes Previous Attempt: Yes Previous Psychiatric Hospitalization: Yes Protective Factors Assessment : Yes Employed: No Supportive Family: Yes Good Rapport with Provider: Yes Interval History Identifying Information YEISON MATTHEW is a 36-year-old F who currently lives in [place], has a history of hospitalizations on in 2010, and was admitted on 03/25/22 19:07 on a 201 voluntary commitment for severe obsessions and SI. Chief Complaint "I have some ideas on structuring my time, I do feel my ERP needs to happen at home." Review of Systems Sleep Information Total Hours of Sleep: 5.5 Sleep Comments: ambien 10 mg prn Meal Information Percent Meal Consumed - Breakfast: 100 Percent Meal Consumed - Lunch: 100 Percent Meal Consumed - Dinner: 100 Subjective Subjective Patient was seen & assessed and interval progress reviewed with nursing and so jay work. had successful meeting with mother and , had intake with [facility]. Main issue now is dealing with her anxiety about regressing on return home. She feels she actually slept quite well (7 hrs) which is beyond what staff documented. Physical Exam Psychiatric Orientation: alert and oriented x 3 Apperance: appropriately dressed and appropriately groomed Eye Contact: good eye contact Motor Behavior: no abnormal motor movements Speech: normal rate/rhythm/volume of speech Affect: + depressed affect Mood: + depressed mood and + anxious mood Thought Process: goal directed thought process Thought Content: reality based without delusions Suicidal Thoughts: denies suicidal thoughts, denies suicidal plan (while in hospital) and denies suicidal intent Homicidal Thoughts: denies homicidal thoughts Hallucinations: no auditory hallucinations and no visual hallucinations Cognition: attention grossly intact and language grossly intact Estimated Intelligence: consistent with education level Vital Signs (Past 24 Hours) Last Vital Signs Temp 36.6 C 03/29/22 06:50 Pulse 91 H 03/29/22 06:50 Resp 16 03/29/22 06:50 BP 92/62 L 03/29/22 06:50 Pulse Ox 99 03/25/22 19:58 O2 Del Method 03/25/22 19:58 Results & Data ([facility]) Current Inpatient Medications Current Inpatient Medications: Current Inpatient Medications Acetaminophen (Acetaminophen 325 Mg Tab) 650 mg PO Q4H PRN PRN Reason: Headache or Minor Fever Stop: 04/24/22 19:04 Al Hydrox/Mg Hydrox/Simethicone (Aluminum/Magnesium Susp 30 Ml Udc) 30 ml PO Q4H PRN PRN Reason: GI Upset Stop: 04/24/22 19:04 Bismuth Subsalicylate (Bismuth Subsalicylate Liqd 236 Ml) 15 ml PO PRN PRN PRN Reason: Loose Stool Stop: 04/24/22 19:04 Docusate Sodium (Docusate Sodium 100 Mg Cap) 100 mg PO BID TERESSA Stop: 04/27/22 20:59 Last Admin: 03/29/22 08:37 Dose: 100 mg Hydroxyzine HCl (Hydroxyzine Hcl 25 Mg Tab) 25 mg PO Q4H PRN PRN Reason: Anxiety Stop: 04/24/22 19:04 Lorazepam (Lorazepam 0.5 Mg Tab) 0.25 mg PO BID PRN PRN Reason: Anxiety Stop: 04/24/22 19:43 Loxapine Succinate (Loxapine Succinate) 1 each PO HS TERESSA Stop: 04/24/22 21:59 Last Admin: 03/28/22 21:52 Dose: 1 each Magnesium Hydroxide (Magnesium Hydroxide Susp 30 Ml Udc) 30 ml PO DAILY PRN PRN Reason: Constipation Stop: 04/24/22 19:04 Clomipramine 25mg: Non-Formulary Patient's Own Med 1 each PO DAILYBD TERESSA Stop: 04/27/22 17:14 Last Admin: 03/28/22 17:35 Dose: 25 mg Paroxetine HCl (Paroxetine Hcl 10 Mg Tab) 10 mg PO HS TERESSA Stop: 04/26/22 21:59 Last Admin: 03/28/22 21:51 Dose: 10 mg Polyethylene Glycol (Polyethylene (Miralax) 17 Gm Pack) 17 gm PO DAILY TERESSA Stop: 04/25/22 10:59 Last Admin: 03/29/22 08:39 Dose: 17 gm Sodium Chloride (Sodium Chloride 0.65% Na Soln 45 Ml ([place])) 1 - 2 sprays NA PRN PRN PRN Reason: Nasal Dryness/Congestion Stop: 04/24/22 19:04 Zolpidem Tartrate (Zolpidem Tartrate 10 Mg Tab) 10 mg PO HS PRN PRN Reason: Sleep Stop: 04/26/22 09:35 Last Admin: 03/28/22 22:01 Dose: 10 mg Mental Health & Subst Abuse Tx Psychiatrist Name of Psychiatrist: [facility] - Dr. Covarrubias Psychiatrist's Date of Appointment with Psychiatrist: 04/11/22 Time of Appointment with Psychiatrist: 12:40pm Psychiatric Appointment Comment: Via Zoom Therapist Name of Therapist: [facility] - Albert Elise, PhD, [facility] Therapist's Date of Therapist Appointment: 03/31/22 Time of Therapist Appointment: 2pm Therapy Appointment Comment: [address], [address], [place], [place] Obgyn Hospitalist Physician Name of Obgyn Hospitalist Physician: [employer] Phone Number for Obgyn Hospitalist Physician: [phone] Post Discharge Appointments Primary Care Physician Name Of Family Doctor: Sudha Domínguez Primary Care Date of Appointment with PCP: 04/07/22 Time of Appointment with PCP: 2:45 PM Provider Appointment Comment: [facility] Neela Hernandez - [address], [place] [id number] Contact Information Discharge Discharge Address: [address] [place] [address]
[2022-03-29] MEDS ORDERED: POLYETHYLENE (MIRALAX) 17 GM PACK PO ONE (13:40)
[2022-03-29] MEDS ORDERED: CLOMIPRAMINE 25 MG PO SCH (17:15)
[2022-03-29] MEDS: LOXAPINE SUCCINATE PO SCH (21:52)
[2022-03-30] MEDS: DOCUSATE SODIUM 100 MG CAP PO SCH (08:47)
[2022-03-30] MEDS ORDERED: POLYETHYLENE (MIRALAX) 17 GM PACK PO SCH (09:00)
--- NOTE | 2022-03-30 09:44 | Discharge Summary ---
Date of Service March 30, 2022 History of Present Illness The patient notes an increase in her obsessions and compulsions since September. There was a leak in the plumbing so she started looking for other leads and soon she had to stay with her parents in [facility] for a week at a time as the symptoms were so bad, "but I couldn't relax there either as I kept thinking about it." Anyway, drain flies were treated by an front loader residential driver but she continued to worry about bugs in the pipes and "now it's so bad that yesterday there was an ant on my computer and I thought there was a whole colony." She started to have urges to jump from a parking garage and thought she should seek treatment as in the past her has had to restrain her from self-harm. She has attempted to cut, OD, jump multiple occasions (remote). Suicidal thoughts have been intermittent since September and tended to dissipate when at her parents. She reports her is supportive but this arrangement is not sustainable, particularly is mother is concerned now about enabling her. With regards to past history of PTSD and her ongoing eating disorder, she states that PTSD is "pretty much nonexistent" but that she continues to restrict her calories at home to <1500 (typically [id number]) and religiously counts her calories and eats the same foods. She denies purging. She takes 2-3 20-40 min walks a day and will sometimes ride bike for 20 min. She does this for stress relief. She states her weight has been low but stable and her "eating disorder has never been the focus of treatment, takes a back seat." As far as recent medication changes, she was to be cross tapering Paxil to clomipramine trial but hadn't started yet. She reports that medications have not been as effective as exposure therapies. Most have caused constipation and she doesn't like to feel bloated. Physical Exam Psychiatric See admission H&P and DOD assessment. Vital Signs (Past 24 Hours) Last Vital Signs Temp 36.9 C 03/30/22 06:35 Pulse 92 H 03/30/22 06:39 Resp 16 03/29/22 06:50 BP 102/68 03/30/22 06:39 Pulse Ox 99 03/25/22 19:58 O2 Del Method 03/25/22 19:58 Principal Diagnosis major depressive disorder Psychiatric Data See daily stay summary. In short, safety was maintained and the patient was cooperative with care. She ate well on the unit and was less preoccupied with her obsessions though she did not sleep very well during med changes. There was no direct evidence of activation by clomipramine and dose was increased to 50 mg once Paxil was discontinued. Miralax and stool softener addressed any constipation which was likely diet/exercise change rather than new medication but she is aware to monitor. A family session was held with her and mother and safety plan was completed prior to discharge She does plan to stay at home to work on [employer] rather than going to [facility] for extended periods. Her mother plans to visit her to honor this and provide support as her is transitioning back to director multimedia teaching in person for [employer]. Cherri also agreed to a child support case officer for additional support and had an intake for the [facility] while on the unit. Day of Discharge Assessment Today the patient voices readiness for discharge. They note improvement in mood and deny thoughts to harm self or others. Thoughts remain organized and they are improved from admission. There is no evidence of psychosis. They agree to take mediations as prescribed and keep follow-up appointments. They are stable for discharge to outpatient level of care. Transition of Care Transition Of Care Record: was reviewed with the patient Advance Directives Advance Directives Information Provided: Yes Advance Directives: No Mental Health Advance Directive: No Advance Directives on File: No Living Will: No Power of Color Expert: No Advance Directives Reason:: Declines as Mental Health Visit. Risk Factors Assessment Do You Have Access To A Gun?: No Mental Health Diagnoses: Yes Previous Attempt: Yes Previous Psychiatric Hospitalization: Yes Protective Factors Assessment : Yes Employed: No Supportive Family: Yes Good Rapport with Provider: Yes Tobacco Cessation at Discharge Tobacco Cessation Medication Prescribed at Discharge: Not Applicable/Non-Smoker Total Time Total Time Spent: Greater Than 30 Minutes Discharge Data Lab Results 03/25/22 03/25/22 03/25/22 17:03 17:03 17:03 WBC RBC Hgb Hct MCV MCH MCHC RDW Std Deviation RDW Coeff of Samy Plt Count MPV Immature Gran % (Auto) Neut % (Auto) Lymph % (Auto) [place] % (Auto) Eos % (Auto) Baso % (Auto) Neut # (Auto) Lymph # (Auto) [place] # (Auto) Eos # (Auto) Baso # (Auto) Immature Gran # (Auto) Sodium Potassium Chloride Carbon Dioxide Anion Gap BUN Creatinine Est Cr Clr Drug Dosing Est GFR ( Amer) Est GFR (Non-Af Amer) BUN/Creatinine Ratio Glucose Fasting Glucose Calcium Total Bilirubin AST ALT Alkaline Phosphatase Total Protein Albumin Globulin Albumin/Globulin Ratio Triglycerides Cholesterol LDL Cholesterol, Calc VLDL Cholesterol, Calc HDL Cholesterol Cholesterol/HDL Ratio TSH Urine Color Yellow Urine Appearance Clear Urine pH 7.0 Ur Specific [place] 1.019 Urine Protein Negative Urine Glucose (UA) Negative Urine Ketones Negative Urine Blood Trace H Urine Nitrite Negative Urine Bilirubin Negative Urine Urobilinogen Negative Ur Leukocyte Esterase Negative Urine WBC (Auto) 1-5 Urine RBC (Auto) 5-10 H U Hyaline Cast (Auto) 0 U Epithel Cells (Auto) 10-20 H Urine Bacteria (Auto) Negative Urine Test Negative Salicylates Urine Opiates Screen Ur Methadone, Qual Acetaminophen Urine Barbiturates Ur Phencyclidine (PCP) U Amphetamin/Meth Scrn MDMA (Ecstasy) Screen U Benzodiazepines Scrn Ur Cocaine Metabolite U Marijuana (THC) Screen Ethyl Alcohol mg/dL SARS-CoV-2, RNA, NAAT NEGATIVE 03/25/22 03/25/22 03/25/22 17:03 17:25 17:25 WBC 7.64 RBC 4.15 Hgb 13.7 Hct 41.1 MCV 99.0 MCH 33.0 MCHC 33.3 RDW Std Deviation 44.2 RDW Coeff of Samy 12.1 Plt Count 212 MPV 10.1 Immature Gran % (Auto) 0.1 Neut % (Auto) 77.9 Lymph % (Auto) 15.7 [place] % (Auto) 5.9 Eos % (Auto) 0.1 Baso % (Auto) 0.3 Neut # (Auto) 5.95 Lymph # (Auto) 1.20 [place] # (Auto) 0.45 Eos # (Auto) 0.01 Baso # (Auto) 0.02 Immature Gran # (Auto) 0.01 Sodium 139 Potassium 3.9 Chloride 103 Carbon Dioxide 30 Anion Gap 6 BUN 15 Creatinine 0.69 Est Cr Clr Drug Dosing 76.4 Est GFR ( Amer) 130.7 Est GFR (Non-Af Amer) 112.8 BUN/Creatinine Ratio 21.7 H Glucose 106 H Fasting Glucose Calcium 9.8 Total Bilirubin 0.4 AST 21 ALT 22 Alkaline Phosphatase 39 Total Protein 7.3 Albumin 4.9 Globulin 2.4 L Albumin/Globulin Ratio 2.0 Triglycerides Cholesterol LDL Cholesterol, Calc VLDL Cholesterol, Calc HDL Cholesterol Cholesterol/HDL Ratio TSH Urine Color Urine Appearance Urine pH Ur Specific [place] Urine Protein Urine Glucose (UA) Urine Ketones Urine Blood Urine Nitrite Urine Bilirubin Urine Urobilinogen Ur Leukocyte Esterase Urine WBC (Auto) Urine RBC (Auto) U Hyaline Cast (Auto) U Epithel Cells (Auto) Urine Bacteria (Auto) Urine Test Salicylates Urine Opiates Screen Neg Ur Methadone, Qual Neg Acetaminophen Urine Barbiturates Neg Ur Phencyclidine (PCP) Neg U Amphetamin/Meth Scrn Neg MDMA (Ecstasy) Screen Neg U Benzodiazepines Scrn Neg Ur Cocaine Metabolite Neg U Marijuana (THC) Screen Neg Ethyl Alcohol mg/dL SARS-CoV-2, RNA, NAAT 03/25/22 03/25/22 03/25/22 17:25 17:25 17:25 WBC RBC Hgb Hct MCV MCH MCHC RDW Std Deviation RDW Coeff of Samy Plt Count MPV Immature Gran % (Auto) Neut % (Auto) Lymph % (Auto) [place] % (Auto) Eos % (Auto) Baso % (Auto) Neut # (Auto) Lymph # (Auto) [place] # (Auto) Eos # (Auto) Baso # (Auto) Immature Gran # (Auto) Sodium Potassium Chloride Carbon Dioxide Anion Gap BUN Creatinine Est Cr Clr Drug Dosing Est GFR ( Amer) Est GFR (Non-Af Amer) BUN/Creatinine Ratio Glucose Fasting Glucose Calcium Total Bilirubin AST ALT Alkaline Phosphatase Total Protein Albumin Globulin Albumin/Globulin Ratio Triglycerides Cholesterol LDL Cholesterol, Calc VLDL Cholesterol, Calc HDL Cholesterol Cholesterol/HDL Ratio TSH 0.931 Urine Color Urine Appearance Urine pH Ur Specific [place] Urine Protein Urine Glucose (UA) Urine Ketones Urine Blood Urine Nitrite Urine Bilirubin Urine Urobilinogen Ur Leukocyte Esterase Urine WBC (Auto) Urine RBC (Auto) U Hyaline Cast (Auto) U Epithel Cells (Auto) Urine Bacteria (Auto) Urine Test Salicylates < 3.0 L Urine Opiates Screen Ur Methadone, Qual Acetaminophen < 3 L Urine Barbiturates Ur Phencyclidine (PCP) U Amphetamin/Meth Scrn MDMA (Ecstasy) Screen U Benzodiazepines Scrn Ur Cocaine Metabolite U Marijuana (THC) Screen Ethyl Alcohol mg/dL < 10.0 SARS-CoV-2, RNA, NAAT 03/26/22 07:55 WBC RBC Hgb Hct MCV MCH MCHC RDW Std Deviation RDW Coeff of Samy Plt Count MPV Immature Gran % (Auto) Neut % (Auto) Lymph % (Auto) [place] % (Auto) Eos % (Auto) Baso % (Auto) Neut # (Auto) Lymph # (Auto) [place] # (Auto) Eos # (Auto) Baso # (Auto) Immature Gran # (Auto) Sodium Potassium Chloride Carbon Dioxide Anion Gap BUN Creatinine Est Cr Clr Drug Dosing Est GFR ( Amer) Est GFR (Non-Af Amer) BUN/Creatinine Ratio Glucose Fasting Glucose 94 Calcium Total Bilirubin AST ALT Alkaline Phosphatase Total Protein Albumin Globulin Albumin/Globulin Ratio Triglycerides 43 Cholesterol 164 LDL Cholesterol, Calc 105 VLDL Cholesterol, Calc 9 HDL Cholesterol 50 Cholesterol/HDL Ratio 3.3 TSH Urine Color Urine Appearance Urine pH Ur Specific [place] Urine Protein Urine Glucose (UA) Urine Ketones Urine Blood Urine Nitrite Urine Bilirubin Urine Urobilinogen Ur Leukocyte Esterase Urine WBC (Auto) Urine RBC (Auto) U Hyaline Cast (Auto) U Epithel Cells (Auto) Urine Bacteria (Auto) Urine Test Salicylates Urine Opiates Screen Ur Methadone, Qual Acetaminophen Urine Barbiturates Ur Phencyclidine (PCP) U Amphetamin/Meth Scrn MDMA (Ecstasy) Screen U Benzodiazepines Scrn Ur Cocaine Metabolite U Marijuana (THC) Screen Ethyl Alcohol mg/dL SARS-CoV-2, RNA, NAAT Hospital Course (1) Depression with suicidal ideation: (2) Obsessive compulsive disorder: (3) Anorexia nervosa with significantly low body weight: (4) Post traumatic stress disorder: Plan 03/29/22: d/c Paxil. Increase clomipramine to 50 mg. increase Miralax for complaints of constipation. 03/28/22: last dose Paxil this pm, continue clomipramine 25 mg until Paxil d/c. Patient is requesting stool softener. dose clomipramine earlier in case it is interfering with sleep. Ambien for now. 03/27/22: Jayaien prn short trial, coordinate care with outpatient psychiatrist on 03/28/22. Reeducated re: rationale for cross taper. 03/26/22: The patient was admitted to the [facility] (locked inpatient mental health unit) on q15 min checks (behavioral with suicide precautions) for safety. The patient will participate in group, recreational, and milieu therapies and will be offered additional individual and family sessions as clinically appropriate. Risks/benefits/alternatives reviewed re: current medications, agreed to taper Paxil in favor of a trial of TCA, clomipramine 25 mg qhs. Monitor PO intake. Mental Health & Subst Abuse Tx Psychiatrist Name of Psychiatrist: [facility] - Dr. Covarrubias Psychiatrist's Date of Appointment with Psychiatrist: 04/11/22 Time of Appointment with Psychiatrist: 12:40pm Psychiatric Appointment Comment: Via Zoom Therapist Name of Therapist: [facility] - Albert Elise, PhD, [facility] Therapist's Date of Therapist Appointment: 03/31/22 Time of Therapist Appointment: 2pm Therapy Appointment Comment: [facility] [address], [address], [place], [place] Stagecraft Teacher [facility] Stagecraft [facility] Phone Number for Stagecraft Teacher: [phone] Date of Appointment with Stagecraft Teacher: 03/31/22 Time of Appointment with Stagecraft Teacher: 12 PM Case Management Appointment Comment: implementation project manager will follow-up for appointment at your home. Post Discharge Appointments Primary Care Physician Name Of Family Doctor: Sudha Domínguez [facility] Date of Appointment with PCP: 04/07/22 Time of Appointment with PCP: 2:45 PM Provider Appointment Comment: [facility] Neela Hernandez - Sheila Rodgers, WANG Hernandez [id number] Smoking Cessation Counseling Tobacco Cessation Medication Prescribed at Discharge: Not Applicable/Non-Smoker Contact Information Discharge Discharge [address]: [address] [place] [address] Discharge Plan Discharge Items Patient Disposition: Home - Self-Care Reason For Visit: DEPRESSIVE DISORDER Discharge Diagnosis: major depressive disorder Activity: Resume your previous activity Non-emergency contact: Primary Care Provider, Psychiatrist, Therapist and Optometric Coordinator Call non-emergency contact if: you have any medication questions and your symptoms worsen Follow-up/Referrals: ROWAN GUTIERREZ M.D. [Primary Care Provider] - Diet: Regular and Lactose Intolerant Addtl Attending Provider Instructions: SPECIAL CARE INSTRUCTIONS: 1. Follow through with your scheduled aftercare appointments. If unable to keep an appointment, please call to reschedule. 2. Take your medication only as prescribed. Medication should not be changed or stopped without the approval of your doctor. In the event of worsening symptoms or concerns about side effects, contact your doctor immediately. 3. Utilize new healthy coping skills, anger management skills, and stress management skills learned during your hospitalization. Journal feelings and process them with a support person. Identify stressors or situations that may result in relapse, deterioration or inappropriate behaviors and develop a plan to deal with those issues. 4. If your coping skills are ineffective and you are in crisis, contact your outpatient providers for direction. If unable to reach your providers, please call the [facility] CRISIS LINE AT , go to the [facility] walk-in center at [address] [place] [address], [address], [place], or go to the closest Emergency Room. 5. Avoid alcohol and un-prescribed drugs. 6. You have been provided with the Mental Health Advance Directives Pamphlet for your review. 7. Your condition is stable for discharge to outpatient level of care, but recovery is an ongoing process. Ifthoughts to harm yourself or others return, follow the safety plan developed during your stay. Planning for a safe return home includes securing weapons. Our treatment team recommends weaponsbe removed from the home until your outpatient provider reassesses your progress. In rare cases where the items themselvescannot be removed, guns and ammunitionshould be secured separatelyand keys stored by a reliable personoutside of the home. If you were admitted on an involuntary commitment, the police or other legal authorities may be involved in this process. AFTERCARE APPOINTMENTS: * Please call your insurance company prior to your scheduled appointment to confirm your aftercare providers are covered. Take your insurance information to your appointments. WHO TO CALL AND WHEN: Medical Emergencies: For questions or emergencies related to your hospital stay, please contact the Inpatient Behavioral Health Unit at [phone]. A feed mixer helper is on-call 06/03 for the Behavioral Health Unit for emergencies At any time you feel your situation is an emergency, you may also call 911 immediately. Pending Studies at Discharge: No Stand-Alone Forms: My [facility], Smoking Cessation Medications and DC Order Prescriptions: New polyethylene glycol 3350 [Miralax] 17 gram Powder In Packet 34 g PO DAILY PRN (Reason: constipation) Qty: 14 0RF Continued loxapine succinate 5 mg capsule 5 mg PO HS lorazepam 0.5 mg tablet 0.5 mg PO BID PRN (Reason: Anxiety) Rx Instructions: take 1/2 to 1 tablet twice a day as needed for anxiety Changed clomipramine 25 mg capsule 50 mg PO DAILYBD Qty: 1 0RF Discontinued paroxetine HCl 10 mg tablet 10 mg PO DAILY Discharge Orders: Discharge Order (Routine); Ordered 03/30/22 Ordered By: Nayana Allan Admission Data Admit Date/Time: 03/25/22 19:07 Attending Provider: Nayana Allan Admit Provider: Nayana Allan Primary Care Provider: ROWAN GUTIERREZ Other Providers: Adelina Cleveland Other Interventions: Discharge Summary Assessment (RN) Last Done: 03/30/22 11:23 PSY Interdisciplinary Discharge Planning Last Done: 03/30/22 11:48 Coding Level of Care Code 39108 D/C day mgmt > 30 min Diagnoses Depression with suicidal ideation F32.A; R45.851 Obsessive compulsive disorder F42.9 Anorexia nervosa with significantly low body weight F50.00 Post traumatic stress disorder F43.10
[2022-03-30] MEDS ORDERED: DESTROY THIS MEDICATION ONE (11:39)
== END 2022-03-30 13:45 | disposition home or self-care (01) | DRG 881 ==
LOC: ED 16:41 → 3S 19:07 → SUATTDRO 19:07 → 3S 19:44

== ENCOUNTER 2022-04-27 15:07 | Inpatient (IN) ==
--- NOTE | 2022-04-27 15:12 | ED Triage Note ---
Date of Service April 27, 2022 History of Present Illness This patient was briefly evaluated while in triage. An abbreviated physical exam was performed. This patient is a 36-year-old Female with past medical history of anorexia nervosa with significantly low body weight, OCD, depression with SI, psychologic conversion disorder, also has Covid-19 since Monday who presents to the ED for evaluation of "I'm a danger to myself." Pt. states she has been extremely suicidal the past day, nearly attempted. Was hospitalized about a month ago on psych unit for same symptoms. Physical Exam VITALS: Vitals are noted on the nurse's note and reviewed by myself. GENERAL: This is a 36 year old white female, in no acute distress, nondiaphoretic, well-developed well-nourished. SKIN: No obvious rashes, edema, erythema HEAD: Normocephalic atraumatic. EYES: Conjunctivae without injection, sclerae without icterus. NECK: No JVD. LUNGS: No retractions or accessory muscle use. MUSCULOSKELETAL: Normal gait. NEURO: Patient was alert and oriented to person place and time. No focal neurological deficits. Initial orders for labs and / or imaging were placed and patient was placed in the waiting area until a bed is available. Please see further documentation for the full ED course.
[2022-04-27 16:08] LABS: Appearance Urine Turbid (Clear); Bacteria Urine Automated Negative (Negative); Bilirubin Urine Negative (Negative); Blood Urine Negative (Negative); Color Urine Dark Yellow; Epithelial Cell Urine Auto 20-30 /lpf (0-5); Glucose Urine UA Negative (Negative); Ketones Urine 1+ (Negative); Leukocyte Esterase Urine Negative (Negative); Nitrite Urine Negative (Negative); Protein Urine Negative (Negative); Specific Gravity Urine 1.023 (1.000-1.030); Urobilinogen Urine Negative (Negative); pH Urine 7.5 (4.5-7.5)
--- NOTE | 2022-04-27 16:22 | XRay Report ---
XR chest 1V portable CLINICAL HISTORY: Covid positive. COMPARISON STUDY: Chest radiograph July 26, 2017. FINDINGS: Lung volumes are normal. Lungs are clear. There is no pneumothorax or pleural effusion. Car diac size is normal. Mediastinal contours are normal. There is no evidence for pulmonary edema. IMPRESSION: No acute cardiopulmonary findings. ACT 112: Negative or not required by law. Electronically signed by: Edwar Choe M.D. 04/27/2022 4:20 PM
[2022-04-27 16:30] LABS: Basophils # (auto) 0.01 K/uL (0-0.2); Basophils % (auto) 0.2 %; Hematocrit (blood only) 42.3 % (34.1-44.9); Hemoglobin 14.1 g/dl (12.0-16.0); Immature Granulocytes # (auto) 0.01 K/uL (0.00-0.02); Immature Granulocytes % (auto) 0.2 %; Lymphocytes # (auto) 0.76 K/uL (1.2-3.4); Lymphocytes % (auto) 12.7 %; Mean Corpuscular Hemoglobin 32.7 pg (25.0-34.0); Mean Corpuscular Hgb Conc 33.3 g/dL (32.0-36.0); Mean Corpuscular Volume 98.1 fL (80.0-100.0); Mean Platelet Volume 10.2 fL (9.4-12.3); Monocytes # (auto) 0.43 K/uL (0.24-0.82); Monocytes % (auto) 7.2 %; Neutrophils # (auto) 4.79 K/uL (1.4-6.5); Neutrophils % (auto) 79.7 %; Platelet Count 200 K/uL (130-400); RDW Coefficient of Variation 11.9 % (11.5-14.5); RDW Standard Deviation 43.3 fL (36.4-46.3); Red Blood Count 4.31 M/uL (3.93-5.22)
[2022-04-27 16:36] LABS: Amphetamines+Metham, Urine Neg (Neg); Barbiturates, Urine Neg (Neg); Benzodiazepine, Urine Neg (Neg); Cocaine, Urine Neg (Neg); MDMA (Ecstacy), Urine Neg (Neg); Methadone, Urine Neg (Neg); Opiate, Urine Neg (Neg); Phencyclidine, Urine Neg (Neg)
[2022-04-27 16:53] LABS: Acetaminophen < 3 ug/ml (10-30); Albumin Level 4.8 gm/dl (3.4-5.0); BUN Creatinine Ratio 21.3 (10-20); Bilirubin,Total 0.3 mg/dl (0.2-1.0); Calcium 9.5 mg/dl (8.5-10.1); Creatinine Clr Calc Pharmacy 21.9 ml/min; Est GFR (African American) 136.1 ml/min; Est GFR (Non-African American) 117.5 ml/min; Globulin 2.4 gm/dl (2.5-4.0); Potassium 4.1 mmol/L (3.5-5.1); Salicylate < 3.0 mg/dl (3.0-30); Total Protein 7.2 gm/dl (6.0-8.3)
[2022-04-27 16:55] LABS: Pregnancy Test, Serum Negative (Negative)
--- NOTE | 2022-04-27 17:06 | Emergency Department Note ---
Impression & Plan Depression with suicidal ideation, Obsessive compulsive disorder ED Provider Note Provider: Mark Newsome MD DATE OF SERVICE: 04/27/2022 CHIEF COMPLAINT: Depression and suicidal ideation HISTORY OF PRESENT ILLNESS: Patient is a 36-year-old female history of OCD, PTSD, and depression presenting here today with case management specialistcommercial account manager thoughts of wanting to harm her self. States there is been various stressors and she has various phobias of things at her house and she was having thoughts of wanting to end her life. States she thought about getting her car and driving to a large building or parking garage downtown and jumping. She states she has a history of psychiatric issues and has been previously hospitalized including about a month ago. Denies drug or alcohol issues. Patient states she has been religiously taking her occasions without issue. Patient states she just does n ot feel safe at home and believes she needs help and is here voluntarily for treatment. Does report that she had a significantly maybe a low-grade fever about 4 to 5 days ago and had a positive COVID home test last Monday. REVIEW OF SYSTEMS: A total of 10 review of systems was obtained and negative except as stated above in the HPI. PAST MEDICAL HISTORY: As noted above MEDICATIONS: Reviewed home medications SOCIAL HISTORY: and lives with , denies drug use PHYSICAL EXAM: GENERAL: alert and oriented in no acute distress on stretcher Head: normocephalic and atraumatic EYES: No injection, discharge or icterus. NECK: Trachea midline. LUNGS: Airway patent. No retractions. Breath sounds clear HEART: Regular rate and rhythm. SKIN: Acyanotic, warm, dry, without rashes EXTREMITIES: Without swelling, tenderness or deformity NEUROLOGICAL: No focal deficits. No aphasia. No facial droop or slurred speech. Ambulatory. Psych: Endorses significant anxiety and depression with some suicidal ideation. Denies wanting to harm in [facility]. Not responding to external stimuli. Tearful at times during the questioning. Patient's laboratory stud Mood disorder, infection, hypoglycemia, electrolyte abnormalities, cardiac sources, intracerebral event, toxicologic, trauma, neuro logic, as well as other pathologies. IMPRESSION/MEDICAL DECISION MAKING: Does not appear significantly symptomatic from COVID. Retest today. Basic blood work obtained without significant abnormality. Seen with case management. Patient's personal case management specialist was present initially for some additional history. Patient seeking voluntary inpatient treatment. Blood work is reassuring although the patient's COVID test does return positive. Given this will not be accepted to psychiatry for inpatient mental health facilities. Given the need for this given her depression and suicidal ideation, discussed with the hospitalist team here to monitor on the medical floor in isolation with psychiatry in consultation. Patient updated and in agreement with the plan. DIAGNOSIS: Depression with suicidal ideation DISPOSITION: Hospitalist will evaluate Patient was agreeable with this plan. Past Med/Surg History Medical History Appendicitis Dystonia (11/22/11) Social History Smoking Status: Never smoker Preferred Language: Jordanian Communication Ability: Effective Pressure Steamer Tender Required: No Beliefs That Will Affect Care: None Feels Safe at Home: Yes Allergies Allergies Allergy/AdvReac Type Severity Reaction Status Date / Time shellfish derived Allergy Severe ANAPHYLAXIS Verified 08/08/17 07:15 Egg Derived Allergy Intermediate RASH Verified 08/08/17 07:15 erythromycin base Allergy Intermediate RASH, Verified 08/08/17 07:15 HIVES AND SWELLING milk Allergy Mild RASH Verified 08/08/17 07:15 clavulanic acid Allergy Unknown RASH, Verified 08/08/17 07:15 HIVES AND SWELLING Penicillins Allergy Unknown HIVES, Verified 08/08/17 07:15 RASH AND SWELLING sulfisoxazole Allergy Unknown RASH, Verified 07/26/17 14:38 HIVES AND SWELLING oxycodone AdvReac Mild MIGRAINE Verified 07/26/17 14:45 Home Meds Home Medications Medication Instructions Recorded Confirmed loxapine succinate 5 mg capsule 5 mg PO HS 03/25/22 04/27/22 lorazepam 0.5 mg tablet 0.5 mg PO BID PRN Anxiety 03/26/22 04/27/22 clomipramine 75 mg capsule 75 mg PO HS 04/27/22 04/27/22 Previous Rx's Medication Instructions Recorded polyethylene glycol 3350 17 gram 34 g PO DAILY PRN constipation #14 03/30/22 oral powder packet (Miralax) ea Results & Data (ED) Vital Signs Vital Signs - 24 hr 04/27/22 15:09 Temperature 36.6 C Temperature Source Temporal Artery Scan Pulse Rate 101 H Respiratory Rate 18 Respiratory Effort / Characteristics Non-Labored Spontaneous Respiratory Depth Normal Blood Pressure 109/82 Blood Pressure Mean 91 Pulse Oximetry 94 Oxygen Delivery Method Room Air Sepsis Recent Fever Within 48 Hours No Sepsis New/Unexplained Change in Mental Status N/A Sepsis Action Taken by Nursing No Action Required Laboratory Data Result diagrams: 04/27/22 16:13 04/27/22 16:13 Lab Results 04/27/22 04/27/22 04/27/22 Range/Units 15:30 15:30 16:13 WBC 6.00 (4.8-10.8) K/ul RBC 4.31 (3.93-5.22) M/uL Hgb 14.1 (12.0-16.0) g/dl Hct 42.3 (34.1-44.9) % MCV 98.1 (80.0-100.0) fL MCH 32.7 (25.0-34.0) pg MCHC 33.3 (32.0-36.0) g/dL RDW Std Deviation 43.3 (36.4-46.3) fL RDW Coeff of Samy 11.9 (11.5-14.5) % Plt Count 200 (130-400) K/uL MPV 10.2 (9.4-12.3) fL Immature Gran % (Auto) 0.2 % Neut % (Auto) 79.7 % Lymph % (Auto) 12.7 % [place] % (Auto) 7.2 % Eos % (Auto) 0.0 % Baso % (Auto) 0.2 % Neut # (Auto) 4.79 (1.4-6.5) K/uL Lymph # (Auto) 0.76 L (1.2-3.4) K/uL [place] # (Auto) 0.43 (0.24-0.82) K/uL Eos # (Auto) 0.00 (0-0.50) K/uL Baso # (Auto) 0.01 (0-0.2) K/uL Immature Gran # (Auto) 0.01 (0.00-0.02) K/uL Sodium (136-145) mmol/L Potassium (3.5-5.1) mmol/L Chloride (98-107) mmol/L Carbon Dioxide (21-32) mmol/L Anion Gap (3-11) BUN (6-23) mg/dl Creatinine (0.6-1.2) mg/dl Est Cr Clr Drug Dosing ml/min Est GFR ( Amer) ml/min Est GFR (Non-Af Amer) ml/min BUN/Creatinine Ratio (10-20) Glucose (70-99(Fasting)) mg/dl Calcium (8.5-10.1) mg/dl Total Bilirubin (0.2-1.0) mg/dl AST (13-39) U/L ALT (7-52) U/L Alkaline Phosphatase (34-104) U/L Total Protein (6.0-8.3) gm/dl Albumin (3.4-5.0) gm/dl Globulin (2.5-4.0) gm/dl Albumin/Globulin Ratio (0.9-2) TSH (0.300-4.500) uIu/ml HCG, Qual (Negative) Urine Color Dark Yellow Urine Appearance Turbid A (Clear) Urine pH 7.5 (4.5-7.5) Ur Specific [place] 1.023 (1.000-1.030) Urine Protein Negative (Negative) Urine Glucose (UA) Negative (Negative) Urine Ketones 1+ H (Negative) Urine Blood Negative (Negative) Urine Nitrite Negative (Negative) Urine Bilirubin Negative (Negative) Urine Urobilinogen Negative (Negative) Ur Leukocyte Esterase Negative (Negative) Urine WBC (Auto) 1-5 (0-5) /hpf Urine RBC (Auto) 5-10 H (0-4) /hpf U Hyaline Cast (Auto) 1-5 (0-5) /lpf U Epithel Cells (Auto) 20-30 H (0-5) /lpf Urine Bacteria (Auto) Negative (Negative) Salicylates (3.0-30) mg/dl Urine Opiates Screen Neg (Neg) Ur Methadone, Qual Neg (Neg) Acetaminophen (10-30) ug/ml Urine Barbiturates Neg (Neg) Ur Phencyclidine (PCP) Neg (Neg) U Amphetamin/Meth Scrn Neg (Neg) MDMA (Ecstasy) Screen Neg (Neg) U Benzodiazepines Scrn Neg (Neg) Ur Cocaine Metabolite Neg (Neg) U Marijuana (THC) Screen Neg (Neg) Ethyl Alcohol mg/dL (<10.0) mg/dl SARS-CoV-2 (PCR) (Negative) 04/27/22 04/27/2204/27/22 Range/Units 16:13 16:13 16:13 WBC (4.8-10.8) K/ul RBC (3.93-5.22) M/uL Hgb (12.0-16.0) g/dl Hct (34.1-44.9) % MCV (80.0-100.0) fL MCH (25.0-34.0) pg MCHC (32.0-36.0) g/dL RDW Std Deviation (36.4-46.3) fL RDW Coeff of Samy (11.5-14.5) % Plt Count (130-400) K/uL MPV (9.4-12.3) fL Immature Gran % (Auto) % Neut % (Auto) % Lymph % (Auto) % [place] % (Auto) % Eos % (Auto) % Baso % (Auto) % Neut # (Auto) (1.4-6.5) K/uL Lymph # (Auto) (1.2-3.4) K/uL [place] # (Auto) (0.24-0.82) K/uL Eos # (Auto) (0-0.50) K/uL Baso # (Auto) (0-0.2) K/uL Immature Gran # (Auto) (0.00-0.02) K/uL Sodium 139 (136-145) mmol/L Potassium 4.1 (3.5-5.1) mmol/L Chloride 102 (98-107) mmol/L Carbon Dioxide 30 (21-32) mmol/L Anion Gap 7 (3-11) BUN 13 (6-23) mg/dl Creatinine 0.61 (0.6-1.2) mg/dl Est Cr Clr Drug Dosing 21.9 ml/min Est GFR ( Amer) 136.1 ml/min Est GFR (Non-Af Amer) 117.5 ml/min BUN/Creatinine Ratio 21.3 H (10-20) Glucose 99 (70-99(Fasting)) mg/dl Calcium 9.5 (8.5-10.1) mg/dl Total Bilirubin 0.3 (0.2-1.0) mg/dl AST 21 (13-39) U/L ALT 23 (7-52) U/L Alkaline Phosphatase 47 (34-104) U/L Total Protein 7.2 (6.0-8.3) gm/dl Albumin 4.8 (3.4-5.0) gm/dl Globulin 2.4 L (2.5-4.0) gm/dl Albumin/Globulin Ratio 2.0 (0.9-2) TSH 0.949 (0.300-4.500) uIu/ml HCG, Qual (Negative) Urine Color Urine Appearance (Clear) Urine pH (4.5-7.5) Ur Specific [place] (1.000-1.030) Urine Protein (Negative) Urine Glucose (UA) (Negative) Urine Ketones (Negative) Urine Blood (Negative) Urine Nitrite (Negative) Urine Bilirubin (Negative) Urine Urobilinogen (Negative) Ur Leukocyte Esterase (Negative) Urine WBC (Auto) (0-5) /hpf Urine RBC (Auto) (0-4) /hpf U Hyaline Cast (Auto) (0-5) /lpf U Epithel Cells (Auto) (0-5) /lpf Urine Bacteria (Auto) (Negative) Salicylates < 3.0 L (3.0-30) mg/dl Urine Opiates Screen (Neg) Ur Methadone, Qual (Neg) Acetaminophen < 3 L (10-30) ug/ml Urine Barbiturates (Neg) Ur Phencyclidine (PCP) (Neg) U Amphetamin/Meth Scrn (Neg) MDMA (Ecstasy) Screen (Neg) U Benzodiazepines Scrn (Neg) Ur Cocaine Metabolite (Neg) U Marijuana (THC) Screen (Neg) Ethyl Alcohol mg/dL (<10.0) mg/dl SARS-CoV-2 (PCR) (Negative) 04/27/22 04/27/22 04/27/22 Range/Units 16:13 16:13 16:14 WBC (4.8-10.8) K/ul RBC (3.93-5.22) M/uL Hgb (12.0-16.0) g/dl Hct (34.1-44.9) % MCV (80.0-100.0) fL MCH (25.0-34.0) pg MCHC (32.0-36.0) g/dL RDW Std Deviation (36.4-46.3) fL RDW Coeff of Samy (11.5-14.5) % Plt Count (130-400) K/uL MPV (9.4-12.3) fL Immature Gran % (Auto) % Neut % (Auto) % Lymph % (Auto) % [place] % (Auto) % Eos % (Auto) % Baso % (Auto) % Neut # (Auto) (1.4-6.5) K/uL Lymph # (Auto) (1.2-3.4) K/uL [place] # (Auto) (0.24-0.82) K/uL Eos # (Auto) (0-0.50) K/uL Baso # (Auto) (0-0.2) K/uL Immature Gran # (Auto) (0.00-0.02) K/uL Sodium (136-145) mmol/L Potassium (3.5-5.1) mmol/L Chloride (98-107) mmol/L Carbon Dioxide (21-32) mmol/L Anion Gap (3-11) BUN (6-23) mg/dl Creatinine (0.6-1.2) mg/dl Est Cr Clr Drug Dosing ml/min Est GFR ( Amer) ml/min Est GFR (Non-Af Amer) ml/min BUN/Creatinine Ratio (10-20) Glucose (70-99(Fasting)) mg/dl Calcium (8.5-10.1) mg/dl Total Bilirubin (0.2-1.0) mg/dl AST (13-39) U/L ALT (7-52) U/L Alkaline Phosphatase (34-104) U/L Total Protein (6.0-8.3) gm/dl Albumin (3.4-5.0) gm/dl Globulin (2.5-4.0) gm/dl Albumin/Globulin Ratio (0.9-2) TSH (0.300-4.500) uIu/ml HCG, Qual Negative (Negative) Urine Color Urine Appearance (Clear) Urine pH (4.5-7.5) Ur Specific [place] (1.000-1.030) Urine Protein (Negative) Urine Glucose (UA) (Negative) Urine Ketones (Negative) Urine Blood (Negative) Urine Nitrite (Negative) Urine Bilirubin (Negative) Urine Urobilinogen (Negative) Ur Leukocyte Esterase (Negative) Urine WBC (Auto) (0-5) /hpf Urine RBC (Auto) (0-4) /hpf U Hyaline Cast (Auto) (0-5) /lpf U Epithel Cells (Auto) (0-5) /lpf Urine Bacteria (Auto) (Negative) Salicylates (3.0-30) mg/dl Urine Opiates Screen (Neg) Ur Methadone, Qual (Neg) Acetaminophen (10-30) ug/ml Urine Barbiturates (Neg) Ur Phencyclidine (PCP) (Neg) U Amphetamin/Meth Scrn (Neg) MDMA (Ecstasy) Screen (Neg) U Benzodiazepines Scrn (Neg) Ur Cocaine Metabolite (Neg) U Marijuana (THC) Screen (Neg) Ethyl Alcohol mg/dL < 10.0 (<10.0) mg/dl SARS-CoV-2 (PCR) POSITIVE A* (Negative) Administered Medications Discontinued Medications Lorazepam (Lorazepam 0.5 Mg Tab) 0.25 mg PO NOW STA Stop: 04/27/22 18:06 Last Admin: 04/27/22 18:18 Dose: 0.25 mg Documented By: KALYANI Imaging Data Radiologist's Impression: Chest X-Ray 04/27/22 15:13 XR chest 1V portable CLINICAL HISTORY: Covid positive. COMPARISON STUDY: Chest radiograph July 26, 2017. FINDINGS: Lung volumes are normal. Lungs are clear. There is no pneumothorax or pleural effusion. Cardiac size is normal. Mediastinal contours are normal. There is no evidence for pulmonary edema. IMPRESSION: No acute cardiopulmonary findings. ACT 112: Negative or not required by law. Electronically signed by: Edwar Choe M.D. 04/27/2022 4:20 PM Discharge Plan Visit Data Chief Complaint: Mental Health Evaluation Stated Complaint: MHE ED Provider: Mark Newsome Prescriptions Prescriptions: No Action loxapine succinate 5 mg capsule 5 mg PO HS lorazepam 0.5 mg tablet 0.5 mg PO BID PRN (Reason: Anxiety) Rx Instructions: take 1/2 to 1 tablet twice a day as needed for anxiety polyethylene glycol 3350 [Miralax] 17 gram Powder In Packet 34 g PO DAILY PRN (Reason: constipation) Qty: 14 0RF clomipramine 75 mg capsule 75 mg PO HS
[2022-04-27] MEDS ORDERED: LORazepam 0.5 MG TAB PO STA (18:05)
--- NOTE | 2022-04-27 18:20 | History & Physical Report ---
Date of Service April 27, 2022 Assessment & Plan (1) Depression with suicidal ideation: (2) Obsessive compulsive disorder: (3) Post traumatic stress disorder: (4) Anorexia nervosa with significantly low body weight: Plan: Patient is 36 y/o F with PMH depression, anxiety, history SI, history suicidal attempts in past with Klonopin overdose in 2011, OCD, eating disorder, complex trauma presented to ER for c/o suicidal ideations. Recent behavioral health hospitalization at [facility] 03/26/22-03/30/22 for depression and suicidal ideations of jumping off high building Today SI of jumping off parking garage Admitting medically as patient with positive COVID-19 test Had negative tox screen in ER Suicide precautions Q15 minutes One to one observation Continue home medications Psychiatry consult (5) SARS-CoV-2 positive: Plan: 7 days ago symptom onset sore throat, nasal congestion, mild cough. TMax 99F. Home COVID-19 test positive on 04/22/22. Has resolution of symptoms. 2 COVID vaccines +1 booster. SARS-CoV-2 PCR positive in ER Vital stable, No hypoxia. Labs WNL. CXR: no acute findings. Currently asymptomatic. Place in COVID isolation No treatment necessary at this time DVT Prophylaxis SCDs Pt was seen and care coordinated with Dr Cueva. See addendum History of Present Illness Chief Complaint: Thoughts of hurting self Primary Care Provider: ROWAN GUTIERREZ Patient is 36 y/o F with PMH depression, anxiety, history SI, history suicidal attempts in past with Klonopin overdose in 2011, OCD, eating disorder, complex trauma presented to ER for c/o suicidal ideations. Patient with recent behavioral health hospitalization at [facility] 03/26/22-03/30/22 for depression and suicidal ideations of jumping off high building. She reports her trigger is bugs. Reports had psychodramatist come to home to treat drain flies. She states she is very afraid of insects particularly drain flies. 2 days ago found drain fly in house and reports that triggered her and has been having suicidal ideations all day and wanted to go downtown to parking garage so she could jump off parking garage but she decided to come to hospital instead. She reports numerous other stressors including multiple house repairs and her totally the car and needing to buy a different car recently. Follows with Dr Kwok outpatient and has outpatient social work case manager as well as therapist. Recent med changes of being weaned of Paxil and was stopped 03/29/22, clomipramine was increased and now on 75mg daily. She uses 0.25mg Ativan BID prn and last used 2 days ago secondary to insect incident. She reports history eating disorder but states this is stable and that her weight is stable. She states 7 days ago started with sore throat, nasal congestion, mild cough and had Tmax of 99F. She took home COVID-19 test 5 days ago and was positive. She states sore throat, congestion and cough has resolved and no further fevers. Reports 2 COVID-19 vaccinations and one booster greater than 6 months ago. Her also had URI symptoms and 5 days ago had home positive COVID-19 test as well and his symptoms are also improving. Denies diaphoresis, N/V/D/C, TOMAS, dizziness, syncope, vision changes, neck pain, CP, SOB, orthopnea, palpitations, choking, otalgia, abdominal pain, paresthesias, weakness, extremity weakness, extremity edema, rashes, urinary symptoms. Allergies Allergy/AdvReac Type Severity Reaction Status Date / Time shellfish derived Allergy Severe ANAPHYLAXIS Verified 08/08/17 07:15 Egg Derived Allergy Intermediate RASH Verified 08/08/17 07:15 erythromycin base Allergy Intermediate RASH, Verified 08/08/17 07:15 HIVES AND SWELLING milk Allergy Mild RASH Verified 08/08/17 07:15 clavulanic acid Allergy Unknown RASH, Verified 08/08/17 07:15 HIVES AND SWELLING Penicillins Allergy Unknown HIVES, Verified 08/08/17 07:15 RASH AND SWELLING sulfisoxazole Allergy Unknown RASH, Verified 07/26/17 14:38 HIVES AND SWELLING oxycodone AdvReac Mild MIGRAINE Verified 07/26/17 14:45 Home Medications Medication Instructions Recorded Confirmed Type loxapine succinate 5 mg capsule 5 mg PO HS 03/25/22 04/27/22 History lorazepam 0.5 mg tablet 0.5 mg PO BID PRN Anxiety 03/26/22 04/27/22 History polyethylene glycol 3350 17 gram 34 g PO DAILY PRN constipation #14 03/30/22 04/27/22 Rx oral powder packet (Miralax) ea clomipramine 75 mg capsule 75 mg PO HS 04/27/22 04/27/22 History Past Med/Surg History Medical History (Updated 04/27/22 @ 20:16 by Ellyn Maynard PA-C) Anorexia nervosa with significantly low body weight Appendicitis Depression with suicidal ideation Dystonia (11/22/11) Moderate recurrent major depression (07/05/11) Obsessive compulsive disorder Post traumatic stress disorder (11/22/11) 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) Surgical History (Updated 04/27/22 @ 20:10 by Ellyn Maynard PA-C) History of appendectomy Hx of tonsillectomy Family History (Updated 04/27/22 @ 20:10 by Ellyn Maynard PA-C) Other Anxiety Social History (Updated 04/27/22 @ 20:10 by Ellyn Maynard PA-C) Smoking Status: Never smoker Hx Alcohol Use: No Hx Substance Use: No Preferred Language: Marshallese Communication Ability: Effective Colored Leather Setter Required: No Beliefs That Will Affect Care: None Feels Safe at Home: Yes Review of Systems Review of Systems: All systems reviewed & are unremarkable except as noted in HPI & below Physical Exam Physical Exam: General: no acute distress, thin Head: normocephalic, atraumatic Eyes: conjunctiva non-injected, anicteric ENT: normal inspection external ears, nose, mucous membranes moist Neck: supple, trachea midline Lungs: clear, no respiratory distress, no wheezing/rhonchi/rales CV: RRR, no murmur, no pretibial edema Abd: normal BS, soft, non-tender Ext: no cyanosis, no calf tenderness Neuro: A&O x 3, no focal deficits noted, mildly anxious, cooperative Skin: warm, dry Results & Data Results & Data ([facility]) Vital Signs (Past 12 Hours) Vital Signs Temp Pulse Resp BP Pulse Ox O2 Del Method 04/27/22 15:09 36.6 C 101 H 18 109/82 94 Room Air Laboratory Results Short CBC 04/27/22 Range/Units 16:13 WBC 6.00 (4.8-10.8) K/ul Hgb 14.1 (12.0-16.0) g/dl Hct 42.3 (34.1-44.9) % Plt Count 200 (130-400) K/uL BMP 04/27/22 16:13 Sodium 139 Potassium 4.1 Chloride 102 Carbon Dioxide 30 BUN 13 Creatinine 0.61 Glucose 99 Calcium 9.5 Liver Function 04/27/22 Range/Units 16:13 Total Bilirubin 0.3 (0.2-1.0) mg/dl AST 21 (13-39) U/L ALT 23 (7-52) U/L Alkaline Phosphatase 47 (34-104) U/L Albumin 4.8 (3.4-5.0) gm/dl Urine 04/27/22 Range/Units 15:30 Urine Color Dark Yellow Urine Appearance Turbid A (Clear) Urine pH 7.5 (4.5-7.5) Ur Specific [place] 1.023 (1.000-1.030) Urine Protein Negative (Negative) Urine Glucose (UA) Negative (Negative) Diagnostic Findings Chest X-Ray 04/27/22 15:13 XR chest 1V portable CLINICAL HISTORY: Covid positive. COMPARISON STUDY: Chest radiograph July 26, 2017. FINDINGS: Lung volumes are normal. Lungs are clear. There is no pneumothorax or pleural effusion. Cardiac size is normal. Mediastinal contours are normal. There is no evidence for pulmonary edema. IMPRESSION: No acute cardiopulmonary findings. ACT 112: Negative or not required by law. Electronically signed by: Edwar Choe M.D. 04/27/2022 4:20 PM Supervising Physician Co-Signing Physician Notes Patient is a 35-year-old female with history of anxiety, depression, suicidal ideation, OCD and other medical problems presents with history of suicidal ideation. She admits to having numerous stressors and follows with psychiatrist as outpatient. Patient noticed to have sore throat, nasal congestion and minimal cough and fever for 1 day 7 days ago and was tested positive for COVID at home. Patient's was tested positive as well. Currently denies any cough, shortness of breath, nasal congestion and sore throat is much improved. Please review HPI for complete details. Blood work and imaging studies reviewed. Toxicology screen negative. Tested positive for COVID. Chest x-ray showed no acute findings. Exam patient is thin, frail, in no apparent distress, normocephalic atraumatic, EOMI, normal breath sounds, clear to auscultation, S1- S2, no murmur, no pedal edema, abdomen soft, nontender, normal bowel sounds, alert, awake, oriented, grossly no focal deficits. Patient is admitted for management of suicidal ideation. Continue home medications. Requested one-on-one sitter. Psychiatry consulted. Currently no indication for COVID treatment. Monitor for hypoxia. Check CRP. I personally reviewed the record. Patient is interviewed and examined at bedside. Patient's care is coordinated with Ellyn Maynard PA-C. Please refer to the documentation above for details of patient's presentation and for discussion of other issues.
[2022-04-27] MEDS ORDERED: ACETAMINOPHEN 325 MG TAB PO PRN (21:40)
[2022-04-27] MEDS ORDERED: LORazepam 0.5 MG TAB PO PRN (21:40)
[2022-04-27] MEDS: CLOMIPRAMINE 75 MG PO SCH (23:33)
[2022-04-27] MEDS: LOXAPINE SUCCINATE PO SCH (23:34)
[2022-04-28 06:35] LABS: Hematocrit (blood only) 39.6 % (34.1-44.9); Hemoglobin 13.3 g/dl (12.0-16.0); Mean Corpuscular Hemoglobin 32.4 pg (25.0-34.0); Mean Corpuscular Hgb Conc 33.6 g/dL (32.0-36.0); Mean Corpuscular Volume 96.6 fL (80.0-100.0); Mean Platelet Volume 10.6 fL (9.4-12.3); Platelet Count 164 K/uL (130-400); RDW Coefficient of Variation 11.9 % (11.5-14.5); RDW Standard Deviation 42.3 fL (36.4-46.3); White Blood Count 4.28 K/ul (4.8-10.8)
[2022-04-28 06:58] LABS: Anion Gap 4 (3-11); BUN Creatinine Ratio 28.1 (10-20); Blood Urea Nitrogen 16 mg/dl (6-23); C Reactive Protein < 0.50 mg/dl (0-0.5); Calcium 9.2 mg/dl (8.5-10.1); Carbon Dioxide 31 mmol/L (21-32); Chloride 104 mmol/L (98-107); Est GFR (African American) 139.2 ml/min; Est GFR (Non-African American) 120.1 ml/min; Glucose 87 mg/dl (70-99(Fasting)); Potassium 4.2 mmol/L (3.5-5.1); Sodium 139 mmol/L (136-145)
[2022-04-28] MEDS: POLYETHYLENE (MIRALAX) 17 GM PACK PO SCH (07:59)
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
--- NOTE | 2022-04-28 14:51 | Hospitalist Progress Note ---
Date of Service April 28, 2022 Assessment & Plan (1) Depression with suicidal ideation: Plan: - Recent behavioral health hospitalization at [facility] 03/26/22-03/30/22 for depression and suicidal ideations of jumping off high building - on presentation SI of jumping off parking garage - Admitting medically as patient with positive COVID-19 test - Had negative tox screen in ER - Suicide precautions Q15 minutes - One to one observation - Continue home medications - Psychiatry consult - recs appreciated (2) Obsessive compulsive disorder: Plan: - noted (3) Post traumatic stress disorder: Plan: - noted (4) Anorexia nervosa with significantly low body weight: Plan: - psych consult as above (5) SARS-CoV-2 positive: Plan: - 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 TMax 99F. Home COVID-19 test positive on 04/22/22. Has resolution of symptoms. 2 COVID vaccines +1 booster. - SARS-CoV-2 PCR positive in ER - Vital stable, No hypoxia. Labs WNL. CXR: no acute findings. Currently asymptomatic. - Place in COVID isolation - No treatment necessary at this time Plan DVT Ppx: SCDs Full code Dispo: med/surg Christiano Doherty MD [facility] Medicine Admission and Anticipated Discharge Date Admission Date: April 27, 2022 Subjective Patient with anxiety, depression, h/o SI and suicide attempts with Klonopin (2011), OCD, eating disorder/body dysmorphia presented with suicidal ideation. Seen by psych pending further management. Tested positive for COVID at home about 7 days DESK REPRESENTATIVE with mild symptoms that have improved mostly. Still positive for COVID on admission. Patient is feeling a little better from SI standpoint but is still worried if she were to go home. Reports some mild congestion and scratchy throat, denies chest pain, shortness of breath, n/v/d, abdominal pain., cough. Review of Systems Review of Systems: All systems reviewed & are unremarkable except as noted in Subjective Physical Exam Physical Exam: General: no acute distress, thin Head: normocephalic, atraumatic Eyes: conjunctiva non-injected, anicteric ENT: normal inspection external ears, nose, mucous membranes moist Neck: supple, trachea midline Lungs: clear, no respiratory distress, no wheezing/rhonchi/rales CV: RRR, no murmur, no pretibial edema Abd: normal BS, soft, non-tender Ext: no cyanosis, no calf tenderness Neuro: A&O x 3, no focal deficits noted, calm, cooperative Skin: warm, dry Results & Data Results & Data ([facility]) Vital Signs (Past 12 Hours) Vital Signs Temp Pulse Resp BP Pulse Ox O2 Del Method 04/28/22 08:04 36.5 C 95 H 18 101/68 98 Room Air Laboratory Results Short CBC 04/27/22 04/28/22 Range/Units 16:13 05:33 WBC 6.00 4.28 L (4.8-10.8) K/ul Hgb 14.1 13.3 (12.0-16.0) g/dl Hct 42.3 39.6 (34.1-44.9) % Plt Count 200 164 (130-400) K/uL BMP 04/27/22 04/28/22 16:13 05:33 Sodium 139 139 Potassium 4.1 4.2 Chloride 102 104 Carbon Dioxide 30 31 BUN 13 16 Creatinine 0.61 0.57 L Glucose 99 87 Calcium 9.5 9.2 Liver Function 04/27/22 Range/Units 16:13 Total Bilirubin 0.3 (0.2-1.0) mg/dl AST 21 (13-39) U/L ALT 23 (7-52) U/L Alkaline Phosphatase 47 (34-104) U/L Albumin 4.8 (3.4-5.0) gm/dl Urine 04/27/22 Range/Units 15:30 Urine Color Dark Yellow Urine Appearance Turbid A (Clear) Urine pH 7.5 (4.5-7.5) Ur Specific [place] 1.023 (1.000-1.030) Urine Protein Negative (Negative) Urine Glucose (UA) Negative (Negative) Medications Administered Current Inpatient Medications Acetaminophen (Acetaminophen 325 Mg Tab) 650 mg PO Q4H PRN PRN Reason: pain/fever Stop: 05/27/22 21:39 Lorazepam (Lorazepam 0.5 Mg Tab) 0.5 mg PO BID PRN PRN Reason: Anxiety Stop: 05/27/22 21:39 Loxapine Succinate (Loxapine Succinate) 1 each PO HS TERESSA Stop: 05/27/22 22:59 Last Admin: 04/27/22 23:34 Dose: 1 each Clomipramine 75mg - (Patient's Own Med) 1 each PO HS TERESSA Stop: 05/27/22 22:59 Last Admin: 04/27/22 23:33 Dose: 75 mg Polyethylene Glycol (Polyethylene (Miralax) 17 Gm Pack) 17 gm PO DAILY TERESSA Stop: 05/28/22 08:59 Last Admin: 04/28/22 07:59 Dose: 17 gm
[2022-04-28] MEDS: CLOMIPRAMINE 75 MG PO SCH (21:50)
[2022-04-28] MEDS: LOXAPINE SUCCINATE PO SCH (21:51)
[2022-04-29] MEDS: POLYETHYLENE (MIRALAX) 17 GM PACK PO SCH (08:53)
--- NOTE | 2022-04-29 15:43 | Psychiatric Progress Note ---
Date of Service April 29, 2022 Impression / Recommendations Impression 36 yo female with complex psychiatric history including depression, anxiety, OCD, eating disorder, complex trauma presented for inpatient admission due to SI and inability to function at home. 04/29/22: improved, cannot be transferred to inpatient psych for 9 more days due to COVID+ status and would prefer to return home. There is no psychosis, delirium, or jil interfering with her medical decision making and given established providers, arleth for safety, and confirms he would be available to stay with her for next 3 days, do not feel there is criteria for involuntary commitment. (1) Moderate recurrent major depression: (2) Post traumatic stress disorder: (3) Obsessive compulsive disorder: (4) Anorexia nervosa with significantly low body weight: (5) SARS-CoV-2 positive: Plan Dr. Doherty updated as patient can be discharged to care of this evening. clomipramine short script sent to pharmacy (2 of 50 xl=476 mg) as may run out of own supply (75 mg+25 mg) prior to f/u appointments. Risk Factors Assessment Do You Have Access To A Gun?: No Protective Factors Assessment Employed: No Interval History Identifying Information 36 yo female from [employer], known to me from previous hospitalizations on [facility] (most recent 1 month ago) admitted medically for COVID isolation given COVID + status due to SI and severe obsessions. Chief Complaint "I'd like to go home." Telehealth Telehealth Options: Telephone only For the duration of the visit, provider was performing the assessment from: The same facility as the patient After establishing a telemedicine visit, patient was: Patient was verified with two unique identifiers, Patient/authorized rep acknowledged consent and understanding and Gave permission to continue telehealth session Total Time Spent (minutes): 15 Subjective Subjective Patient was seen & assessed and interval progress reviewed with treatment team. Dr. Covarrubias was notified/updated that patient has been discussing agender/identification as "pez" as part of outpatient care. Patient showered. Feels "much better" and completed safety plan provided by liaison. She verbalizes ongoing need for outpatient care and utilizing coping skills related to obsessions around house. Feels the hospital provided an immediate safety need but not as therapeutic as when able to participate in groups on unit. Physical Exam Psychiatric Orientation: alert Speech: normal rate/rhythm/volume of speech Mood: + depressed mood Thought Process: goal directed thought process Thought Content: reality based without delusions Suicidal Thoughts: denies suicidal thoughts, denies suicidal plan and denies suicidal intent Homicidal Thoughts: denies homicidal thoughts Hallucinations: no auditory hallucinations and no visual hallucinations Cognition: attention grossly intact and language grossly intact Estimated Intelligence: consistent with education level Vital Signs (Past 24 Hours) Last Vital Signs Temp 37.0 C 04/29/22 15:23 Pulse 101 H 04/29/22 15:23 Resp 12 04/29/22 15:23 BP 105/69 04/29/22 15:23 Pulse Ox 98 04/29/22 15:23 O2 Del Method 04/29/22 15:23 Results & Data ([facility]) Current Inpatient Medications Current Inpatient Medications: Current Inpatient Medications Acetaminophen (Acetaminophen 325 Mg Tab) 650 mg PO Q4H PRN PRN Reason: pain/fever Stop: 05/27/22 21:39 Clomipramine HCl (Clomipramine Hcl 25 Mg Capsule) 1 mg PO HS TERESSA Stop: 05/29/22 20:59 Lorazepam (Lorazepam 0.5 Mg Tab) 0.5 mg PO BID PRN PRN Reason: Anxiety Stop: 05/27/22 21:39 Loxapine Succinate (Loxapine Succinate) 1 each PO HS TERESSA Stop: 05/27/22 22:59 Last Admin: 04/28/22 21:51 Dose: 1 each Polyethylene Glycol (Polyethylene (Miralax) 17 Gm Pack) 17 gm PO DAILY TERESSA Stop: 05/28/22 08:59 Last Admin: 04/29/22 08:53 Dose: 17 gm Mental Health & Subst Abuse Tx Psychiatrist Name of Psychiatrist: [facility]- Dr. Kwok Psychiatrist's Phone Number: [phone] Date of Appointment with Psychiatrist: 05/10/22 Time of Appointment with Psychiatrist: 1:20pm Psychiatric Appointment Comment: Swathi [address] [place], [place] Therapist Name of Therapist: [facility] The[facility]'s Date of Therapist Appointment: 05/04/22 Time of Therapist Appointment: 1pm Therapy Appointment Comment: virtual [facility] Name of Bag Valver: [facility] Case Management Appointment Comment: continue regular schedule Post Discharge Appointments Primary Care Physician Name Of Family Doctor: Sudha Domínguez Primary Care Provider Appointment Comment: schedule as needed Contact Information Discharge Discharge Address: [address], [place], [place]
--- NOTE | 2022-04-29 15:44 | Discharge Summary ---
Date of Service April 29, 2022 Admission HPI Per Admitting Provider Patient is 36 y/o F with PMH depression, anxiety, history SI, history suicidal attempts in past with Klonopin overdose in 2011, OCD, eating disorder, complex trauma presented to ER for c/o suicidal ideations. Patient with recent behavioral health hospitalization at [facility] 03/26/22-03/30/22 for depression and suicidal ideations of jumping off high building. She reports her trigger is bugs. Reports had armament mechanic come to home to treat drain flies. She states she is very afraid of insects particularly drain flies. 2 days ago found drain fly in house and reports that triggered her and has been having suicidal ideations all day and wanted to go downtown to parking garage so she could jump off parking garage but she decided to come to hospital instead. She reports numerous other stressors including multiple house repairs and her totally the car and needing to buy a different car recently. Follows with Dr Kwok outpatient and has outpatient cyanide case hardener as well as therapist. Recent med changes of rafy ng weaned of Paxil and was stopped 03/29/22, clomipramine was increased and now on 75mg daily. She uses 0.25mg Ativan BID prn and last used 2 days ago secondary to insect incident. She reports history eating disorder but states this is stable and that her weight is stable. She states 7 days ago started with sore throat, nasal congestion, mild cough and had Tmax of 99F. She took home COVID-19 test 5 days ago and was positive. She states sore throat, congestion and cough has resolved and no further fevers. Reports 2 COVID-19 vaccinations and one booster greater than 6 months ago. Her also had URI symptoms and 5 days ago had home positive COVID-19 test as well and his symptoms are also improving. Denies diaphoresis, N/V/D/C, TOMAS, dizziness, syncope, vision changes, neck pain, CP, SOB, orthopnea, palpitations, choking, otalgia, abdominal pain, paresthesias, weakness, extremity weakness, extremity edema, rashes, urinary symptoms. Admission Exam Per Admitting Provider General: no acute distress, thin Head: normocephalic, atraumatic Eyes: conjunctiva non-injected, anicteric ENT: normal inspection external ears, nose, mucous membranes moist Neck: supple, trachea midline Lungs: clear, no respiratory distress, no wheezing/rhonchi/rales CV: RRR, no murmur, no pretibial edema Abd: normal BS, soft, non-tender Ext: no cyanosis, no calf tenderness Neuro: A&O x 3, no focal deficits noted, mildly anxious, cooperative Skin: warm, dry Principal Diagnosis Suicidal ideation Discharge Exam General: no acute distress, thin Head: normocephalic, atraumatic Eyes: conjunctiva non-injected, anicteric ENT: normal inspection external ears, nose, mucous membranes moist Neck: supple, trachea midline Lungs: clear, no respiratory distress, no wheezing/rhonchi/rales CV: RRR, no murmur, no pretibial edema Abd: normal BS, soft, non-tender Ext: no cyanosis, no calf tenderness Neuro: A&O x 3, no focal deficits noted, calm, cooperative Skin: warm, dry Discharge Data Allergies Allergy/AdvReac Type Severity Reaction Status Date / Time shellfish derived Allergy Severe ANAPHYLAXIS Verified 08/08/17 07:15 Egg Derived Allergy Intermediate RASH Verified 08/08/17 07:15 erythromycin base Allergy Intermediate RASH, Verified 08/08/17 07:15 HIVES AND SWELLING milk Allergy Mild RASH Verified 08/08/17 07:15 clavulanic acid Allergy Unknown RASH, Verified 08/08/17 07:15 HIVES [employer] SWELLING Penicillins Allergy Unknown HIVES, Verified 08/08/17 07:15 RASH AND SWELLING sulfisoxazole Allergy Unknown RASH, Verified 07/26/17 14:38 HIVES AND SWELLING oxycodone AdvReac Mild MIGRAINE Verified 07/26/17 14:45 Consultations 04/27/22 17:29 ED Decision to Admit Stat 04/27/22 21:40 Consult Psychiatry Routine 04/28/22 02:18 Consult Behavioral Health Liaison Routine Hospital Course (1) Depression with suicidal ideation: - Recent behavioral health hospitalization at [facility] 03/26/22-03/30/22 for depression and suicidal ideations of jumping off high building - on presentation SI of jumping off parking garage - Admitting medically as patient with positive COVID-19 test - Had negative tox screen in ER - Suicide precautions Q15 minutes - One to one observation - Psychiatry consult - recs appreciated - increased clomipramine to 100mg qhs - to be discharged to care of and close follow up with psychiatry on discharge, per Dr. Allan, psychiatry (2) Obsessive compulsive disorder: - noted (3) Post traumatic stress disorder: - noted (4) Anorexia nervosa with significantly low body weight: - psych consult as above (5) SARS-CoV-2 positive: - 7 days [employer] symptom onset sore throat, nasal congestion, mild cough. TMax 99F. Home COVID-19 test positive on 04/22/22. Has resolution of symptoms. 2 COVID vaccines +1 booster. - SARS-CoV-2 PCR positive in ER - Vital stable, No hypoxia. Labs WNL. CXR: no acute findings. Currently asymptomatic. - Place in COVID isolation - No treatment necessary at this time Plan DVT Ppx: SCDs Full code Dispo: med/surg Christiano Doherty MD [facility] Medicine Total Time Total Time Spent Total Time Spent (In Minutes): 25 Total Time Includes: Examination of the Patient, Discharge Planning, Medication Reconciliation and Communication With Other Providers Discharge Plan Discharge Items Patient Disposition: Home - Self-Care Reason For Visit: SI Discharge Diagnosis: suicidal ideation Follow-up/Referrals: ROWAN GUTIERREZ M.D. [Primary Care Provider] - Add Attending Provider Instructions: You were admitted for suicidal ideation that was concerning for your safety. You were admitted to the medical floors because of a positive COVI19 test but symptoms have been improving from your initial positive test at home. Dr. Allan saw you and increased your clomipramine 100mg daily. Please follow up with your primary care and psychiatry providers after discharge. Stand-Alone Forms: [facility], Smoking Cessation Medications and DC Order Prescriptions: New clomipramine 50 mg capsule 100 mg PO DAILY Qty: 14 0RF Continued loxapine succinate 5 mg capsule 5 mg PO HS lorazepam 0.5 mg tablet 0.5 mg PO BID PRN (Reason: Anxiety) Rx Instructions: take 1/2 to 1 tablet twice a day as needed for anxiety polyethylene glycol 3350 [Miralax] 17 gram Powder In Packet 34 g PO DAILY PRN (Reason: constipation) Qty: 14 0RF Discontinued clomipramine 75 mg capsule 75 mg PO HS Discharge Orders: Discharge Order (Routine); Ordered 04/29/22 Ordered By: Christiano Doherty Admission Data Admit Date/Time: 04/27/22 18:55 Attending Provider: Christiano Doherty Admit Provider: Isma Cueva Primary Care Provider: ROWAN GUTIERREZ Other Providers: Isma Cueva ; Adelina Cleveland ; Nayana Allan ; Ragini Osorio
[2022-04-29] MEDS ORDERED: CLOMIPRAMINE HCL 25 MG CAPSULE PO SCH (21:00)
== END 2022-04-29 19:01 | disposition home or self-care (01) | DRG 885 ==
LOC: ED 15:07 → SUATTDRO 18:55 → 3E 18:55

== ENCOUNTER 2022-11-24 18:10 | Inpatient (IN) ==
--- NOTE | 2022-11-24 18:45 | Emergency Department Note ---
Impression & Plan Suicidal ideation ED Provider Note NAME: YEISON MATTHEW AGE: 37 SEX: F : 1985 ARRIVES VIA: Walk-In INFORMANT: [Patient][] ED PROVIDER(S): [Ben Gillespie MD] CHIEF COMPLAINT: Mental health evaluation HISTORY OF PRESENT ILLNESS: The patient is a 37-year-old female with a history of depression, suicidality and anorexia. For the last 8 weeks, the patient has noticed increasing depression and stress. She has felt at times suicidal. She feels that the stressor is the fact that her house is undergoing extermination for a carpet Beetle infestation. She states that they cannot seem to get rid of the insects and she is overwhelmed. Today, she ran out of the house planning [place]. Her stopped her. Crisis did an assessment at the home and the patient was sent to the hospital for evaluation. She is voluntary. She is asking to be hospitalized for help with her suicidality. Over the last few weeks, she has at times cut her left wrist superficially to help her cope. These cuts were not suicide attempts. PMHx/PSHx: See Below SOCIAL HISTORY: See Below. PHYSICAL EXAM: GENERAL: Patient is in no acute distress. Seems slightly anxious. Very thin and frail. HEENT: No acute trauma, normocephalic atraumatic, mucous membranes moist, no nasal congestion. NECK: No stridor, no adenopathy, no meningismus, trachea is midline. LUNGS: Clear to auscultation bilaterally, no wheeze, no rhonchi, breath sounds equal. HEART: Without murmurs gallops or rubs, regular rate and rhythm. ABDOMEN: Soft, nontender, bowel sounds positive, no peritonitis. EXTREMITIES: No cyanosis or edema, full range of motion of all the joints without pain or difficulty, no signs for acute trauma. NEUROLOGIC: Oriented x 3, no acute motor or sensory deficits, no focal weakness. SKIN: No rash, no jaundice, no diaphoresis. Psychiatric: Cooperative, voluntary, admits to suicidal ideation with a plan to jump off the parking garage. DIFFERENTIAL DIAGNOSIS: Suicidality, depression, anxiety, psychosis, electrolyte imbalance, thyroid disorder, among others. EMERGENCY DEPARTMENT COURSE/PROCEDURES: Prior/Outside records reviewed: Previous psychiatric hospitalization last year. MEDICAL DECISION MAKING: There is no leukocytosis or concerning anemia. There is a normal platelet count. No renal failure or significant electrolyte abnormality. No concerning liver enzyme elevation. The patient appeared to be in a euthyroid state. Urinalysis showed some contamination, no obvious infection. testing returned negative. Aspirin, Tylenol and alcohol levels were undetectable. Urine tox was negative. COVID test returned negative. On exam, the patient seemed anxious, she was voluntary, she admitted to some suicidal ideation. The patient was felt medically clear. She was seen by psychiatry case management. The patient has been accepted by our [facility], [facility] [address]. She is being admitted to their floor voluntarily. Patient has done well while here in the ED, she has been quite cooperative. DISPOSITION: Patient presents with complaints that warrant a psychiatric hospitalization. 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) Obsessive compulsive disorder Post traumatic stress disorder (11/22/11) 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) Surgical History History of appendectomy Hx of tonsillectomy Family History (Updated 04/27/22 @ 20:10 by Ellyn Maynard PA-C) Other Anxiety Social History Smoking Status: Never smoker Second Hand Exposure: No; Hx Alcohol Use: No Hx Substance Use: No Preferred Language: Macedonian Communication Ability: Effective Technology Auditor Required: No Beliefs That Will Affect Care: None Current Living Situation: Spouse Feels Safe at Home: Yes Gender Identity: Female Assistive Devices: None Allergies Allergies Allergy/AdvReac Type Severity Reaction Status Date / Time shellfish derived Allergy Severe ANAPHYLAXIS Verified 08/08/17 07:15 Egg Derived Allergy Intermediate RASH Verified 08/08/17 07:15 erythromycin base Allergy Intermediate RASH, Verified 08/08/17 07:15 HIVES AND SWELLING milk Allergy Mild RASH Verified 08/08/17 07:15 clavulanic acid Allergy Unknown RASH, Verified 08/08/17 07:15 HIVES AND SWELLING Penicillins Allergy Unknown HIVES, Verified 08/08/17 07:15 RASH AND SWELLING sulfisoxazole Allergy Unknown RASH, Verified 07/26/17 14:38 HIVES AND SWELLING oxycodone AdvReac Mild MIGRAINE Verified 07/26/17 14:45 Home Meds Home Medications Medication Instructions Recorded Confirmed loxapine succinate 5 mg capsule 5 mg PO HS 03/25/22 04/27/22 lorazepam 0.5 mg tablet 0.5 mg PO BID PRN Anxiety 03/26/22 04/27/22 Previous Rx's Medication Instructions Recorded polyethylene glycol 3350 17 gram 34 g PO DAILY PRN constipation #14 03/30/22 oral powder packet (Miralax) ea clomipramine 50 mg capsule 100 mg PO DAILY #14 caps 04/29/22 Results & Data (ED) Vital Signs Vital Signs - 24 hr 11/24/22 18:11 11/24/22 21:15 Temperature 37 C 36.5 C Temperature Source Temporal Artery Scan Oral Pulse Rate 110 H Pulse Rate [Apical] 92 H Pulse Rhythm [Apical] Regular Pulse Strength [Apical] Normal Respiratory Rate 20 18 Respiratory Effort / Characteristics Non-Labored Spontaneous Non-Labored Respiratory Depth Normal Normal Respiratory Pattern Regular Blood Pressure 106/73 Blood Pressure [Right Arm] 104/72 Blood Pressure Mean 84 Blood Pressure Mean [Right Arm] 82 Pulse Oximetry 97 98 Oxygen Delivery Method Room Air Room Air Sepsis Recent Fever Within 48 Hours No Sepsis New/Unexplained Change in Mental Status No Sepsis Action Taken by Nursing No Action Required Home Medications Current Medication List: was personally reviewed by me Laboratory Data Attestation: I reviewed the patient's lab results. 11/24/22 18:24 11/24/22 18:24 Lab Results 11/24/22 11/24/22 11/24/22 Range/Units 18:24 18:24 18:24 WBC 9.01 (4.8-10.8) K/ul RBC 4.06 L (4.20-5.40) M/uL Hgb 13.5 (12.0-16.0) g/dl Hct 40.5 (37.0-47.0) % MCV 99.8 (80.0-100.0) fL MCH 33.3 (25.0-34.0) pg MCHC 33.3 (32.0-36.0) g/dL RDW Std Deviation 45.2 (36.4-46.3) fL RDW Coeff of Samy 12.2 (11.5-14.5) % Plt Count 247 (130-400) K/uL MPV 10.3 (9.4-12.4) fL Immature Gran % (Auto) 0.3 % Neut % (Auto) 73.4 % Lymph % (Auto) 19.2 % Wilkes % (Auto) 6.8 % Eos % (Auto) 0.0 % Baso % (Auto) 0.3 % Neut # (Auto) 6.61 H (1.40-6.50) K/uL Lymph # (Auto) 1.73 (1.2-3.4) K/uL Wilkes # (Auto) 0.61 H (0.11-0.59) K/uL Eos # (Auto) 0.00 (0-0.50) K/uL Baso # (Auto) 0.03 (0-0.2) K/uL Immature Gran # (Auto) 0.03 (0.01-0.20) K/uL Sodium 138 (136-145) mmol/L Potassium 3.8 (3.5-5.1) mmol/L Chloride 102 (98-107) mmol/L Carbon Dioxide 30 (21-32) mmol/L Anion Gap 6 (3-11) BUN 18 (6-23) mg/dl Creatinine 0.72 (0.6-1.2) mg/dl Est Cr Clr Drug Dosing 69.2 ml/min Est GFR ( Amer) 124.9 ml/min Est GFR (Non-Af Amer) 107.7 ml/min BUN/Creatinine Ratio 25.0 H (10-20) Glucose 94 (70-99(Fasting)) mg/dl Calcium 9.4 (8.6-10.3) mg/dl Total Bilirubin 0.3 (0.2-1.0) mg/dl AST 17 (13-39) U/L ALT 17 (7-52) U/L Alkaline Phosphatase 36 (34-104) U/L Total Protein 7.0 (6.0-8.3) gm/dl Albumin 4.9 (3.4-5.0) gm/dl Globulin 2.1 L (2.5-4.0) gm/dl Albumin/Globulin Ratio 2.3 H (0.9-2) TSH 1.098 (0.300-4.500) uIu/ml Urine Color Urine Appearance (Clear) Urine pH (4.5-7.5) Ur Specific Aydlett (1.000-1.030) Urine Protein (Negative) Urine Glucose (UA) (Negative) Urine Ketones (Negative) Urine Blood (Negative) Urine Nitrite (Negative) Urine Bilirubin (Negative) Urine Urobilinogen (Negative) Ur Leukocyte Esterase (Negative) Urine WBC (Auto) (0-5) /hpf Urine RBC (Auto) (0-4) /hpf U Hyaline Cast (Auto) (0-5) /lpf U Epithel Cells (Auto) (0-5) /lpf Urine Bacteria (Auto) (Negative) POC Ur Test (NEG) Salicylates (3.0-30) mg/dl Urine Opiates Screen (Neg) Ur Methadone, Qual (Neg) Acetaminophen (10-30) ug/ml Urine Barbiturates (Neg) Ur Phencyclidine (PCP) (Neg) U Amphetamin/Meth Scrn (Neg) MDMA (Ecstasy) Screen (Neg) U Benzodiazepines Scrn (Neg) Ur Cocaine Metabolite (Neg) U Marijuana (THC) Screen (Neg) Ethyl Alcohol mg/dL (<10.0) mg/dl SARS-CoV-2, RNA, NAAT (NEGATIVE) 11/24/22 11/24/22 11/24/22 Range/Units 18:24 18:24 18:30 WBC (4.8-10.8) K/ul RBC (4.20-5.40) M/uL Hgb (12.0-16.0) g/dl Hct (37.0-47.0) % MCV (80.0-100.0) fL MCH (25.0-34.0) pg MCHC (32.0-36.0) g/dL RDW Std Deviation (36.4-46.3) fL RDW Coeff of Samy (11.5-14.5) % Plt Count (130-400) K/uL MPV (9.4-12.4) fL Immature Gran % (Auto) % Neut % (Auto) % Lymph % (Auto) % Wilkes % (Auto) % Eos % (Auto) % Baso % (Auto) % Neut # (Auto) (1.40-6.50) K/uL Lymph # (Auto) (1.2-3.4) K/uL Wilkes # (Auto) (0.11-0.59) K/uL Eos # (Auto) (0-0.50) K/uL Baso # (Auto) (0-0.2) K/uL Immature Gran # (Auto) (0.01-0.20) K/uL Sodium (136-145) mmol/L Potassium (3.5-5.1) mmol/L Chloride (98-107) mmol/L Carbon Dioxide (21-32) mmol/L Anion Gap (3-11) BUN (6-23) mg/dl Creatinine (0.6-1.2) mg/dl Est Cr Clr Drug Dosing ml/min Est GFR ( Amer) ml/min Est GFR (Non-Af Amer) ml/min BUN/Creatinine Ratio (10-20) Glucose (70-99(Fasting)) mg/dl Calcium (8.6-10.3) mg/dl Total Bilirubin (0.2-1.0) mg/dl AST (13-39) U/L ALT (7-52) U/L Alkaline Phosphatase (34-104) U/L Total Protein (6.0-8.3) gm/dl Albumin (3.4-5.0) gm/dl Globulin (2.5-4.0) gm/dl Albumin/Globulin Ratio (0.9-2) TSH (0.300-4.500) uIu/ml Urine Color Yellow Urine Appearance Cloudy A (Clear) Urine pH 5.5 (4.5-7.5) Ur Specific Aydlett 1.034 H (1.000-1.030) Urine Protein Negative (Negative) Urine Glucose (UA) Negative (Negative) Urine Ketones Negative (Negative) Urine Blood 2+ H (Negative) Urine Nitrite Negative (Negative) Urine Bilirubin Negative (Negative) Urine Urobilinogen Negative (Negative) Ur Leukocyte Esterase Negative (Negative) Urine WBC (Auto) 1-5 (0-5) /hpf Urine RBC (Auto) 10-30 H (0-4) /hpf U Hyaline Cast (Auto) 1-5 (0-5) /lpf U Epithel Cells (Auto) 20-30 H (0-5) /lpf Urine Bacteria (Auto) Negative (Negative) POC Ur Test (NEG) Salicylates < 3.0 L (3.0-30) mg/dl Urine Opiates Screen (Neg) Ur Methadone, Qual (Neg) Acetaminophen < 3 L (10-30) ug/ml Urine Barbiturates (Neg) Ur Phencyclidine (PCP) (Neg) U Amphetamin/Meth Scrn (Neg) MDMA (Ecstasy) Screen (Neg) U Benzodiazepines Scrn (Neg) Ur Cocaine Metabolite (Neg) U Marijuana (THC) Screen (Neg) Ethyl Alcohol mg/dL < 10.0 (<10.0) mg/dl SARS-CoV-2, RNA, NAAT (NEGATIVE) 11/24/22 11/24/22 11/24/22 Range/Units 18:30 18:30 18:30 WBC (4.8-10.8) K/ul RBC (4.20-5.40) M/uL Hgb (12.0-16.0) g/dl Hct (37.0-47.0) % MCV (80.0-100.0) fL MCH (25.0-34.0) pg MCHC (32.0-36.0) g/dL RDW Std Deviation (36.4-46.3) fL RDW Coeff of Samy (11.5-14.5) % Plt Count (130-400) K/uL MPV (9.4-12.4) fL Immature Gran % (Auto) % Neut % (Auto) % Lymph % (Auto) % Wilkes % (Auto) % Eos % (Auto) % Baso % (Auto) % Neut # (Auto) (1.40-6.50) K/uL Lymph # (Auto) (1.2-3.4) K/uL Wilkes # (Auto) (0.11-0.59) K/uL Eos # (Auto) (0-0.50) K/uL Baso # (Auto) (0-0.2) K/uL Immature Gran # (Auto) (0.01-0.20) K/uL Sodium (136-145) mmol/L Potassium (3.5-5.1) mmol/L Chloride (98-107) mmol/L Carbon Dioxide (21-32) mmol/L Anion Gap (3-11) BUN (6-23) mg/dl Creatinine (0.6-1.2) mg/dl Est Cr Clr Drug Dosing ml/min Est GFR ( Amer) ml/min Est GFR (Non-Af Amer) ml/min BUN/Creatinine Ratio (10-20) Glucose (70-99(Fasting)) mg/dl Calcium (8.6-10.3) mg/dl Total Bilirubin (0.2-1.0) mg/dl AST (13-39) U/L ALT (7-52) U/L Alkaline Phosphatase (34-104) U/L Total Protein (6.0-8.3) gm/dl Albumin (3.4-5.0) gm/dl Globulin (2.5-4.0) gm/dl Albumin/Globulin Ratio (0.9-2) TSH (0.300-4.500) uIu/ml Urine Color Urine Appearance (Clear) Urine pH (4.5-7.5) Ur Specific Aydlett (1.000-1.030) Urine Protein (Negative) Urine Glucose (UA) (Negative) Urine Ketones (Negative) Urine Blood (Negative) Urine Nitrite (Negative) Urine Bilirubin (Negative) Urine Urobilinogen (Negative) Ur Leukocyte Esterase (Negative) Urine WBC (Auto) (0-5) /hpf Urine RBC (Auto) (0-4) /hpf U Hyaline Cast (Auto) (0-5) /lpf U Epithel Cells (Auto) (0-5) /lpf Urine Bacteria (Auto) (Negative) POC Ur Test NEG (NEG) Salicylates (3.0-30) mg/dl Urine Opiates Screen Neg (Neg) Ur Methadone, Qual Neg (Neg) Acetaminophen (10-30) ug/ml Urine Barbiturates Neg (Neg) Ur Phencyclidine (PCP) Neg (Neg) U Amphetamin/Meth Scrn Neg (Neg) MDMA (Ecstasy) Screen Neg (Neg) U Benzodiazepines Scrn Neg (Neg) Ur Cocaine Metabolite Neg (Neg) U Marijuana (THC) Screen Neg (Neg) Ethyl Alcohol mg/dL (<10.0) mg/dl SARS-CoV-2, RNA, NAAT NEGATIVE (NEGATIVE) Discharge Plan Visit Data Chief Complaint: Mental Health Evaluation Stated Complaint: SUCIDAL,ATTEMPTED SUCIDE ED Provider: Ben Gillespie Discharge Problem: Suicidal ideation Patient Disposition: Admitted As Inpatient Condition: Good Forms Stand Alone Forms: My [facility], Suicide Prevention Resources, Virtual Emergency Department, Important Visit Information Prescriptions Prescriptions: No Action loxapine succinate 5 mg capsule 5 mg PO HS lorazepam 0.5 mg tablet 0.5 mg PO BID PRN (Reason: Anxiety) Rx Instructions: take 1/2 to 1 tablet twice a day as needed for anxiety polyethylene glycol 3350 [Miralax] 17 gram Powder In Packet 34 g PO DAILY PRN (Reason: constipation) Qty: 14 0RF clomipramine 50 mg capsule 100 mg PO DAILY Qty: 14 0RF Referrals Referrals: ROWAN GUTIERREZ M.D. [Staff Physician] -
[2022-11-24 18:56] LABS: Basophils # (auto) 0.03 K/uL (0-0.2); Basophils % (auto) 0.3 %; Hematocrit (blood only) 40.5 % (37.0-47.0); Hemoglobin 13.5 g/dl (12.0-16.0); Immature Granulocytes # (auto) 0.03 K/uL (0.01-0.20); Immature Granulocytes % (auto) 0.3 %; Lymphocytes # (auto) 1.73 K/uL (1.2-3.4); Lymphocytes % (auto) 19.2 %; Mean Corpuscular Hemoglobin 33.3 pg (25.0-34.0); Mean Corpuscular Hgb Conc 33.3 g/dL (32.0-36.0); Mean Corpuscular Volume 99.8 fL (80.0-100.0); Mean Platelet Volume 10.3 fL (9.4-12.4); Monocytes # (auto) 0.61 K/uL (0.11-0.59); Monocytes % (auto) 6.8 %; Neutrophils # (auto) 6.61 K/uL (1.40-6.50); Neutrophils % (auto) 73.4 %; Platelet Count 247 K/uL (130-400); RDW Coefficient of Variation 12.2 % (11.5-14.5); RDW Standard Deviation 45.2 fL (36.4-46.3); Red Blood Count 4.06 M/uL (4.20-5.40); White Blood Count 9.01 K/ul (4.8-10.8)
[2022-11-24 19:04] LABS: Acetaminophen < 3 ug/ml (10-30); Salicylate < 3.0 mg/dl (3.0-30)
[2022-11-24 19:07] LABS: Albumin Globulin Ratio 2.3 (0.9-2); Albumin Level 4.9 gm/dl (3.4-5.0); Bilirubin,Total 0.3 mg/dl (0.2-1.0); Calcium 9.4 mg/dl (8.6-10.3); Creatinine Clr Calc Pharmacy 69.2 ml/min; Est GFR (African American) 124.9 ml/min; Est GFR (Non-African American) 107.7 ml/min; Globulin 2.1 gm/dl (2.5-4.0); Potassium 3.8 mmol/L (3.5-5.1)
[2022-11-24 19:21] LABS: Appearance Urine Cloudy (Clear); Bacteria Urine Automated Negative (Negative); Bilirubin Urine Negative (Negative); Blood Urine 2+ (Negative); Color Urine Yellow; Epithelial Cell Urine Auto 20-30 /lpf (0-5); Glucose Urine UA Negative (Negative); Ketones Urine Negative (Negative); Leukocyte Esterase Urine Negative (Negative); Nitrite Urine Negative (Negative); Protein Urine Negative (Negative); Specific Gravity Urine 1.034 (1.000-1.030); Urobilinogen Urine Negative (Negative); pH Urine 5.5 (4.5-7.5)
[2022-11-24 19:53] LABS: Amphetamines+Metham, Urine Neg (Neg); Barbiturates, Urine Neg (Neg); Benzodiazepine, Urine Neg (Neg); Cocaine, Urine Neg (Neg); MDMA (Ecstacy), Urine Neg (Neg); Methadone, Urine Neg (Neg); Opiate, Urine Neg (Neg); Phencyclidine, Urine Neg (Neg)
[2022-11-25] MEDS ORDERED: LORazepam 0.5 MG TAB PO PRN (01:12)
[2022-11-25] MEDS ORDERED: POLYETHYLENE (MIRALAX) 17 GM PACK PO PRN (01:15)
[2022-11-25] MEDS ORDERED: LOXAPINE 5 MG PO SCH (01:30)
[2022-11-25] MEDS ORDERED: ACETAMINOPHEN 325 MG TAB PO PRN (01:39)
[2022-11-25] MEDS ORDERED: MAGNESIUM HYDROXIDE SUSP 30 ML UDC PO PRN (01:39)
[2022-11-25] MEDS ORDERED: BISMUTH SUBSALICYLATE LIQD 236 ML PO PRN (01:39)
[2022-11-25] MEDS ORDERED: SODIUM CHLORIDE 0.65% NA SOLN 45 ML (OCEAN) PRN (01:39)
[2022-11-25] MEDS ORDERED: ALUMINUM/MAGNESIUM SUSP 30 ML UDC PO PRN (01:39)
[2022-11-25] MEDS ORDERED: hydrOXYzine HCl 25 MG TAB PO PRN (01:39)
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
[2022-11-25] MEDS: CLOMIPRAMINE 50 MG PO SCH (08:32)
[2022-11-25] MEDS: CLOMIPRAMINE 75 MG PO SCH (08:33)
[2022-11-25] MEDS ORDERED: CLOMIPRAMINE PO SCH (09:00)
[2022-11-25] MEDS: LOXAPINE 5 MG PO SCH (21:09)
[2022-11-25] MEDS ORDERED: LOXAPINE SUCCINATE PO SCH (22:00)
[2022-11-26] MEDS: CLOMIPRAMINE 75 MG PO SCH (08:23)
[2022-11-26] MEDS: CLOMIPRAMINE 50 MG PO SCH (08:23)
[2022-11-26] MEDS: POLYETHYLENE (MIRALAX) 17 GM PACK PO SCH (08:25)
[2022-11-26] MEDS: PSYLLIUM or GUAR GUM FIBER POWDER PACKET PO SCH (08:25)
[2022-11-26] MEDS ORDERED: DOCUSATE SODIUM 100 MG CAP PO PRN (15:41)
--- NOTE | 2022-11-26 16:22 | Psychiatric Progress Note ---
Date of Service November 26, 2022 Impression / Recommendations Impression 37 y/o F with recurrent major depression, OCD, PTSD, history of anorexia nervosa with intrusive fears of insects and of being alone who has concluded that her home is unsafe to occupy. She has a history of multiple suicide attempts and has contemplated multiple means of killing herself recently, though she contracts for safety here. 11/26/2022: Diagnostically consistent with OCD related to recent sightings of in sects in her home and fears due to her 's upcoming travel plans. Encouragingly is considering role of avoidance and recognizes importance of continuing to remain in her home to prevent worsening of OCD even while her is away. Feels safe in the hospital. Tolerating higher dose of loxapine. Per her request will consolidate memantine dose to 10mg HS to make it easier to take this. (1) Post traumatic stress disorder: (2) Major depressive disorder, recurrent severe without psychotic features: (3) Anorexia nervosa with significantly low body weight: (4) Obsessive compulsive disorder: Plan 11/26/2022: Continue loxapine 10mg HS, clomipramine 125mg daily and consolidate memantine to 10mg HS. 11/25/2022: The patient was admitted to the [facility] ([facility]) on q15 min checks (behavioral with suicide precautions) for safety. The patient will participate in group, recreational, and milieu therapies and will be offered additional individual and family sessions as clinically appropriate. Discussed multiple possibilities including adjusting clomipramine (though in the absence of a blood level it's unclear of what benefit this might be), adjusting loxapine (though she was previously been thought possibly to have had involuntary movements attributable to it), or adjusting memantine (which was ju st added a very short while ago). Pt would like to increase the loxapine. Since it's a non-formulary drug, we will need to investigate whether her current supply will suffice for that. * increase loxapine to 10 mg QHS * continue clomipramine 125 mg daily * continue memantine 5 mg daily, anticipate titration to 10 mg daily * continue scheduled polyethylene glycol 34 g daily * add scheduled psyllium daily Inventory Assets Strengths: supportive relationships, has local supports,voluntary, intelligent Needs: safety and stabilization, medication adjustment, additional coping skills Suicide Risk Level Suicide Risk Level: Moderate (q15 min suicide checks) Suicide Risk Level Comments: history of attempts and increased ideation prior to admission but denies SI today and feels able to alert nursing if she felt unsafe or required additional support while here Risk Factors Assessment Male: No : Yes Do You Have Access To A Gun?: No Health Problems: Yes Mental Health Diagnoses: Yes Substance Use Disorders: No Previous Attempt: Yes Previous Psychiatric Hospitalization: Yes Protective Factors Assessment : Yes Employed: No Supportive Family: Yes Interval History Identifying Information YEISON MATTHEW is a 37-year-old F who currently lives with her , has a history of OCD, anorexia and depression, and was admitted on 11/24/22 23:25 on a 201 voluntary commitment for suicidal thoughts. Chief Complaint "I feel much safer here". Review of Systems Sleep Information Total Hours of Sleep: 7 Sleep Comments: Meal Information Percent Meal Consumed - Breakfast: 100 Percent Meal Consumed - Lunch: 100 Percent Meal Consumed - Dinner: 100 Subjective Subjective Patient was seen & assessed and interval progress reviewed with treatment team nursing and social work. Tolerated higher dose of loxapine last night without any side effects. Slept well and no excessive sedation today. Eating her meals and met with site supervising technical operator. Notes that she feels safe in the hospital due to no concerns about "pests" here. Discussed how having space in the hospital to think without "such overwhelming anxiety" is helping her realize that she can't avoid her issues by staying with her parents when her is out of town. Worries a bit about constipation with higher dose of loxapin but is taking miralax and additional fiber supplement to help with this. Physical Exam Psychiatric Orientation: alert and oriented x 3 Apperance: appropriately dressed and appropriately groomed very thin Eye Contact: + fair eye contact Motor Behavior: no abnormal motor movements Speech: normal rate/rhythm/volume of speech Affect: + anxious affect Mood: + depressed mood and + anxious mood Thought Process: + perseveration Thought Content: + obsessions, + cognitive distortions, + compulsions and + phobias; no delusions Suicidal Thoughts: denies suicidal thoughts, denies suicidal plan and denies suicidal intent Homicidal Thoughts: denies homicidal thoughts Hallucinations: no auditory hallucinations and no visual hallucinations Cognition: recent memory grossly intact, remote memory grossly intact, attention grossly intact and language grossly intact Estimated Intelligence: average estimated intelligence Insight: + limited insight Judgment: + fair judgement Vital Signs (Past 24 Hours) Last Vital Signs Temp 36.7 C 11/26/22 06:00 Pulse 96 H 11/26/22 06:59 Resp 14 11/26/22 06:00 BP 101/68 11/26/22 06:59 Pulse Ox 100 11/25/22 00:29 O2 Del Method Room Air 11/25/22 00:29 Results & Data ([facility]) Laboratory Results Laboratory Results - last 24 hr 11/26/22 11/26/22 08:25 08:25 Vitamin B12 489 25-OH Vitamin D Total 33.0 Folate 22.05 Clomipramine Pending Desmethylclomipramine Pending Clomipramine&N-Desclom Pending Current Inpatient Medications Current Inpatient Medications: Current Inpatient Medications Acetaminophen (Acetaminophen 325 Mg Tab) 650 mg PO Q4H PRN PRN Reason: Headache or Minor Fever Stop: 12/25/22 01:38 Al Hydrox/Mg Hydrox/Simethicone (Aluminum/Magnesium Susp 30 Ml Udc) 30 ml PO Q4H PRN PRN Reason: GI Upset Stop: 12/25/22 01:38 Bismuth Subsalicylate (Bismuth Subsalicylate Liqd 236 Ml) 15 ml PO PRN PRN PRN Reason: Loose Stool Stop: 12/25/22 01:38 Docusate Sodium (Docusate Sodium 100 Mg Cap) 100 mg PO BID PRN PRN Reason: Constipation Stop: 12/26/22 20:59 Hydroxyzine HCl (Hydroxyzine Hcl 25 Mg Tab) 25 mg PO Q4H PRN PRN Reason: Anxiety Stop: 12/25/22 01:38 Lorazepam (Lorazepam 0.5 Mg Tab) 0.5 mg PO BID PRN PRN Reason: Anxiety Stop: 12/25/22 01:11 Loxapine Succinate (Loxapine 5mg Capsule) 2 each PO HS TERESSA Stop: 12/25/22 21:59 Last Admin: 11/25/22 21:09 Dose: 2 each Magnesium Hydroxide (Magnesium Hydroxide Susp 30 Ml Udc) 30 ml PO DAILY PRN PRN Reason: Constipation Stop: 12/25/22 01:38 Memantine (Memantine Hcl 10 Mg Tab) 10 mg PO HS TERESSA Stop: 12/26/22 21:59 Clomipramine 50mg (Cap: Pt Own Med) 1 each PO DAILY TERESSA Stop: 12/25/22 08:59 Last Admin: 11/26/22 08:23 Dose: 50 mg Clomipramine 75mg (Cap: Pt Own Med) 1 each PO DAILY TERESSA Stop: 12/25/22 08:59 Last Admin: 11/26/22 08:23 Dose: 75 mg Polyethylene Glycol (Polyethylene (Miralax) 17 Gm Pack) 34 gm PO DAILY TERESSA Stop: 12/26/22 08:59 Last Admin: 11/26/22 08:25 Dose: 34 gm Psyllium Hydrophilic Mucilloid (Psyllium Or Guar Gum Fiber Powder Packet) 1 pkt PO QAM TERESSA Stop: 12/26/22 08:59 Last Admin: 11/26/22 08:25 Dose: 1 pkt Sodium Chloride (Sodium Chloride 0.65% Na Soln 45 Ml ([facility])) 1 - 2 sprays NA PRN PRN PRN Reason: Nasal Dryness/Congestion Stop: 12/25/22 01:38 Mental Health & Subst Abuse Tx Psychiatrist Name of Psychiatrist: Damaso Covarrubias Psychiatrist's Date Of Appointment With Psychiatric Provider: 12/12/22 Time of Appointment with Psychiatrist: 12:40 PM Psychiatric Appointment Comment: This appointment will be via telehealth. Therapist Name of Therapist: Albert Elise at [facility] Therapist's Date of Therapist Appointment: 11/30/22 Time of Therapist Appointment: 2 PM Therapy Appointment Comment: Please resume your normal schedule. Patient Safety Sitter [facility] Phone Number for [facility] Safety Sitter: [phone] Case Management Appointment Comment: Please resume your normal schedule. Post Discharge Appointments Primary Care Physician Name Of Family Doctor/PCP: Sudha Domínguez PA-C Primary Care Time of Appointment with PCP: Please follow-up with your PCP as needed. Provider Appointment Comment: [address], [place] [address] Contact Information Discharge Discharge Address: [address] [place] [address], [place] [address]
[2022-11-26] MEDS: MEMANTINE HCL 10 MG TAB PO SCH (21:34)
[2022-11-26] MEDS: LOXAPINE 5 MG PO SCH (21:35)
[2022-11-27] MEDS: CLOMIPRAMINE 50 MG PO SCH (08:43)
[2022-11-27] MEDS: CLOMIPRAMINE 75 MG PO SCH (08:44)
[2022-11-27] MEDS: POLYETHYLENE (MIRALAX) 17 GM PACK PO SCH (08:45)
[2022-11-27] MEDS: PSYLLIUM or GUAR GUM FIBER POWDER PACKET PO SCH (08:46)
--- NOTE | 2022-11-27 08:48 | Psychiatric Progress Note ---
Date of Service November 27, 2022 Impression / Recommendations Impression 37 y/o F with recurrent major depression, OCD, PTSD, history of anorexia nervosa with intrusive fears of insects and of being alone who has concluded that her home is unsafe to occupy. She has a history of multiple suicide attempts and has contemplated multiple means of killing herself recently, though she contracts for safety here. 11/27/2022: Showing signs of improvement, denies SI and tolerating higher dose of loxapine. Continuing to experience constipation, discussed additional medication options to help with this. Reviewed option for outpatient solar field installation crew member referral, at this point she feels comfortable with her current outpatient providers and supports. (1) Post traumatic stress disorder: (2) Major depressive disorder, recurrent severe without psychotic features: (3) Anorexia nervosa with significantly low body weight: (4) Obsessive compulsive disorder: Plan 11/27/2022: Continue current medications and tx plan. 11/26/2022: Continue loxapine 10mg HS, clomipramine 125mg daily and consolidate memantine to 10mg HS. 11/25/2022: The patient was admitted to the [facility] ([facility] health unit) on q15 min checks (behavioral with suicide precautions) for safety. The patient will participate in group, recreational, and milieu therapies and will be offered additional individual and family sessions as clinically appropriate. Discussed multiple possibilities including adjusting clomipramine (though in the absence of a blood level it's unclear of what benefit this might be), adjusting loxapine (though she was previously been thought possibly to have had involuntary movements attributable to it), or adjusting memantine (which was just added a very short while ago). Pt would like to increase the loxapine. Since it's a non-formulary drug, we will need to investigate whether her current supply will suffice for that. * increase loxapine to 10 mg QHS * continue clomipramine 125 mg daily * continue memantine 5 mg daily, anticipate titration to 10 mg daily * continue scheduled polyethylene glycol 34 g daily * add scheduled psyllium daily Inventory Assets Strengths: supportive relationships, has local supports,voluntary, intelligent Needs: safety and stabilization, medication adjustment, additional coping skills Suicide Risk Level Suicide Risk Level: Moderate (q15 min suicide checks) Suicide Risk Level Comments: history of attempts and increased ideation prior to admission but denies SI and feels able to alert nursing if she felt unsafe or required additional support while here Risk Factors Assessment Male: No : Yes Do You Have Access To A Gun?: No Health Problems: Yes Mental Health Diagnoses: Yes Substance Use Disorders: No Previous Attempt: Yes Previous Psychiatric Hospitalization: Yes Protective Factors Assessment : Yes Employed: No Supportive Family: Yes Interval History Identifying Information YEISON MATTHEW is a 37-year-old F who currently lives with her , has a history of OCD, anorexia and depression, and was admitted on 11/24/22 23:25 on a 201 voluntary commitment for suicidal thoughts. Chief Complaint "I'm doing ok". Review of Systems Sleep Information Total Hours of Sleep: 6.5 Meal Information Percent Meal Consumed - Breakfast: 100 Percent Meal Consumed - Lunch: 100 Percent Meal Consumed - Dinner: 90 Subjective Subjective Patient was seen & assessed and interval progress reviewed with treatment team nursing and social work. Attending all the groups, social with peers, feeling relaxed here. Showering and eating well. Had family meeting and she explored new ideas to help her cope once back home including trying to incorporate more exposure related work in outpatient therapy again. Denies SI. No excessive sedation from loxapine or other side effects except possible constipation as hasn't had a bowel movement since admission. Discussed trying the colace in addition to miralax and additional fiber. Reviewed that she feels she's doing very well with her eating here and attributes this to not counting calories on a fitness eduardo as she does at home. No other concerns or questions. Physical Exam Psychiatric Orientation: alert and oriented x 3 Apperance: appropriately dressed and appropriately groomed very thin Eye Contact: good eye contact Motor Behavior: no abnormal motor movements Speech: normal rate/rhythm/volume of speech Affect: + anxious affect Mood: + anxious mood Thought Process: goal directed thought process Thought Content: + obsessions, reality based without delusions, + compulsions and + phobias Suicidal Thoughts: denies suicidal thoughts, denies suicidal plan and denies suicidal intent Homicidal Thoughts: denies homicidal thoughts Hallucinations: no auditory hallucinations and no visual hallucinations Cognition: recent memory grossly intact, remote memory grossly intact, attention grossly intact and language grossly intact Estimated Intelligence: average estimated intelligence Insight: + fair insight Judgment: + fair judgement Vital Signs (Past 24 Hours) Last Vital Signs Temp 37.1 C 11/27/22 06:00 Pulse 95 H 11/27/22 06:00 Resp 16 11/27/22 06:00 BP 84/48 L 11/27/22 06:42 Pulse Ox 100 11/27/22 06:00 O2 Del Method Room Air 11/27/22 06:00 Results & Data ([facility]) Laboratory Results Laboratory Results - last 24 hr 11/26/22 11/26/22 08:25 08:25 Vitamin B12 489 25-OH Vitamin D Total 33.0 Folate 22.05 Clomipramine Pending Desmethylclomipramine Pending Clomipramine&N-Desclom Pending Current Inpatient Medications Current Inpatient Medications: Current Inpatient Medications Acetaminophen (Acetaminophen 325 Mg Tab) 650 mg PO Q4H PRN PRN Reason: Headache or Minor Fever Stop: 12/25/22 01:38 Al Hydrox/Mg Hydrox/Simethicone (Aluminum/Magnesium Susp 30 Ml Udc) 30 ml PO Q4H PRN PRN Reason: GI Upset Stop: 12/25/22 01:38 Bismuth Subsalicylate (Bismuth Subsalicylate Liqd 236 Ml) 15 ml PO PRN PRN PRN Reason: Loose Stool Stop: 12/25/22 01:38 Docusate Sodium (Docusate Sodium 100 Mg Cap) 100 mg PO BID PRN PRN Reason: Constipation Stop: 12/26/22 20:59 Hydroxyzine HCl (Hydroxyzine Hcl 25 Mg Tab) 25 mg PO Q4H PRN PRN Reason: Anxiety Stop: 12/25/22 01:38 Lorazepam (Lorazepam 0.5 Mg Tab) 0.5 mg PO BID PRN PRN Reason: Anxiety Stop: 12/25/22 01:11 Loxapine Succinate (Loxapine 5mg Capsule) 2 each PO HS TERESSA Stop: 12/25/22 21:59 Last Admin: 11/26/22 21:35 Dose: 2 each Magnesium Hydroxide (Magnesium Hydroxide Susp 30 Ml Udc) 30 ml PO DAILY PRN PRN Reason: Constipation Stop: 12/25/22 01:38 Memantine (Memantine Hcl 10 Mg Tab) 10 mg PO HS TERESSA Stop: 12/26/22 21:59 Last Admin: 11/26/22 21:34 Dose: 10 mg Clomipramine 50mg (Cap: Pt Own Med) 1 each PO DAILY TERESSA Stop: 12/25/22 08:59 Last Admin: 11/26/22 08:23 Dose: 50 mg Clomipramine 75mg (Cap: Pt Own Med) 1 each PO DAILY TERESSA Stop: 12/25/22 08:59 Last Admin: 11/26/22 08:23 Dose: 75 mg Polyethylene Glycol (Polyethylene (Miralax) 17 Gm Pack) 34 gm PO DAILY TERESSA Stop: 12/26/22 08:59 Last Admin: 11/26/22 08:25 Dose: 34 gm Psyllium Hydrophilic Mucilloid (Psyllium Or Guar Gum Fiber Powder Packet) 1 pkt PO QAM TERESSA Stop: 12/26/22 08:59 Last Admin: 11/26/22 08:25 Dose: 1 pkt Sodium Chloride (Sodium Chloride 0.65% Na Soln 45 Ml ([facility])) 1 - 2 sprays NA PRN PRN PRN Reason: Nasal Dryness/Congestion Stop: 12/25/22 01:38 Mental Health & Subst Abuse Tx Psychiatrist Name of Psychiatrist: Damaso Covarrubias Psychiatrist's Date Of Appointment With Psychiatric Provider: 12/12/22 Time of Appointment with Psychiatrist: 12:40 PM Psychiatric Appointment Comment: This appointment will be via telehealth. Therapist Name of Therapist: Albert Elise at [facility] Therapist's Date of Therapist Appointment: 11/30/22 Time of Therapist Appointment: 2 PM Therapy Appointment Comment: Please resume your normal schedule. Canvas Baster Name of Canvas Baster: Jodi Turpin at [facility] Phone Number for Canvas Baster: [phone] Case Management Appointment Comment: Please resume your normal schedule. Post Discharge Appointments Primary Care Physician Name Of Family Doctor/PCP: Sudha Domínguez PA-C Primary Care Time of Appointment with PCP: Please follow-up with your PCP as needed. Provider Appointment Comment: [place] [address] [address] Contact Information Discharge Discharge Address: [address] [place] [address], [place] [address]
[2022-11-27] MEDS: LOXAPINE 5 MG PO SCH (21:30)
[2022-11-27] MEDS: MEMANTINE HCL 10 MG TAB PO SCH (21:31)
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
[2022-11-28] MEDS: CLOMIPRAMINE 50 MG PO SCH (08:43)
[2022-11-28] MEDS: CLOMIPRAMINE 75 MG PO SCH (08:44)
[2022-11-28] MEDS: POLYETHYLENE (MIRALAX) 17 GM PACK PO SCH (08:45)
[2022-11-28] MEDS: PSYLLIUM or GUAR GUM FIBER POWDER PACKET PO SCH (08:45)
[2022-11-30 07:32] LABS: Desmethylclomipramine 157 mcg/L (150-350)
== END 2022-11-28 09:35 | disposition home or self-care (01) | DRG 882 ==
LOC: ED 18:10 → SUATTDRO 23:25 → 3S 23:25